=== PATIENT | female | born 2000 | race African-American/Black ===

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

== ENCOUNTER 2023-03-08 14:43 | Emergency (ER) | payer OTHER, SELFPAY ==
--- OUTSIDE RECORDS SUMMARY | 2023-03-08 14:50 | XMS REPORT | Continuity of Care Document ---
:2000 Author Organization [facility] t Address [address] [place] [address] Care Team Providers Name Role Phone PCP, PATIENT DOES NOT HAVE A Primary Care Physician Unavaila DANNY Grace Attending Clinician Unavailable DANNY MURRAY Attending Clinician Unavailable JAGUAR CASTILLO Attending Clinician Unavailable JAGUAR CASTILLO Attending Clinician Unavailable Doctor Unassigned, [place] Attending Clinician Unavailable Windy MCLEAN Attending Clinician Unavailable Windy Ahmadi Attending Clinician PERRY REGAN Attending Clinician Unavailable PERRY REGAN Attending Clinician Unavailable JUANA VARELA Attending Clinician Unavailable Juana Varela PA-C Attending Clinician Po, [facility] Lab Main Attending Clinician Unavailable Jane Motley MD Attending Clinician Cait Hodgson Attending Clinician Shawn Aguilera DO Attending Clinician JANE MOTLEY Attending Clinician Unavailable Merary Carrillo Attending Clinician MERARY ANDRES Attending Clinician Unavailable Lamont Erazo MD Attending Clinician Nurse, [facility] Attending Clinician Unavailable Only, Adc Test Attending Clinician Unavailable LAMONT ERAZO Attending Clinician Unavailable Pcp, Patient Does Not Have A Attending Clinician [phone], [facility] Attending Clinician Unavailable Ultrasound, [facility] Attending Clinician Unavailable Rupert Tovar MD Attending Clinician LAMONT ERAZO Admitting Clinician Unavailable Lamont Erazo MD Admitting Clinician Payers Payer Name Policy Type Policy Number Effective Date Expiration Date Kenneth soriano [facility] [id number] 2016 CHOICE MEDICAID 00:00:00 CIGNA II [id number] 2021 00:00:00 Problems Condition Condition Condition Status Onset Resolution Last Treating Co mments Source Name Details Category Date Date Treatment Clinician Date Pain of Pain of Disease Active Univers right right 4 ity of breast breast 00:00: [place] [address] Medical Branch Acute Acute Disease Active Univers vaginitis vaginitis - ity of 00:00: [place] [address] Medical Branch Nexplanon Nexplanon Disease Active Uni vers in place in place 11-27 ity of 00:00: [place] [address] Medical [place] Screening Screening Disease Active Uni vers examinatio examinatio 10-26 it y of n for n for 00:00: [place] venereal venereal 00 Medica l disease disease Branch Allergies, Adverse Reactions, Alerts Allergy Allergy Status Severity Reaction(s) Onset Inactive Treating Comm ents Source Name Type Date Date Clinician NO KNOWN Drug Active Univers ALLERGIE Class ity of [facility] Social History Social Habit Start Date Stop Date Quantity Comments Source History SDND University o f Alcohol Comment [place] [facility] Gender identity Universit y of [facility] Sexual orientation Univer sity of [place] [facility] History SDOH University o f Alcohol Std Drinks [place] [facility] History [facility] University o f Alcohol Binge [place] [facility] Alcohol intake 2023-01-08 2023-01-08 Lifetime University of 00:00:00 00:00:00 non-drinker [facility] (finding) Branch Exposure to 2022-08-08 2022-08-18 Not sure University SARS-CoV-2 (event) 00:00:00 10:08:00 [facility] History of Social 2022-08-17 2022-08-17 Univers ity of function 00:00:00 00:00:00 [facility] Tobacco use and 2022-07-03 2022-07-03 Smokeless Universit y of exposure 00:00:00 00:00:00 tobacco non-user [facility] dical [place] History SDOH 2019-05-29 2019-05-29 1 University o f [facility]00[facility] [place] Sex Assigned At [birth year] Universit y of 00:00:00 00:00:00 [facility] Smoking Status Start Date Stop Date Source Never smoked tobacco [facility] Medications Ordered Filled Start Stop Current Ordering Indication Dosage Frequency Signature Comments Components Source Medication Medication Date Date Medication? Clinician (SIG) Name Name etonogestre 2022- No [id number] 68mg Univers L 01-08 ity of (NEXPLANON) 21:00: 20:14 [place] implant 68 00 :00 Medical mg Branch etonogestre 2022- No [id number] 68mg 68 mg, Univers L 01-08 Subdermal, ity of (NEXPLANON) 21:00[place] :[place] dose, On Medic al mg Mon [place] 01/08/23 at 1600, Routine
Use approved by: CHIEF WARDEN etonogestre 2022- No [id number] 68mg Univers L 01-08 ity of (NEXPLANON) 21:00: 20:14 [place] implant 68 00 :00 Medical mg Branch etonogestre 2022- No [id number] 68mg 68 mg, Univers L 01-08 Subdermal, ity of (NEXPLANON) 21:00: 20:14 [place] 00 :[place] dose, On Medic al mg Mon [place] 01/08/23 at 1600, Routine
Use approved by: [employer]IE[employer]EN estradioL 1 Yes [id number] 1mg Take 1 Univers mg tablet 9-11 tablet by ity o f 00:00: mouth in [place] the Medical morning. Branch estradioL 1 Yes [id number] 1mg Take 1 Univers mg tablet 9-11 tablet by ity o f 00:00: mouth in [place] the Medical morning. Branch estradioL 1 Yes [id number] 1mg Take 1 Univers mg tablet 9-11 tablet by ity o f 00:00: mouth in [place] the Medical morning. Branch estradioL 1 2022-0 Yes [id number] 1mg Take 1 Univers mg tablet 9-11 tablet by ity o f 00:00: mouth in [place] the Medical morning. Branch erythromyci 2022-0 Yes [id number] .5[in_u Place 0.5 Univers n 5 mg/gram 7-30 9104 s] Inches in ity of (0.5 %) 00:00: both eyes [place] ophthalmic 00 4 (four) Medic al ointment times Branch daily. Continue until you follow up with eye doctor. erythromyci 2022-0 Yes [id number] .5[in_u Place 0.5 Univers n 5 mg/gram 7-30 9104 s] Inches in ity of (0.5 %) 00:00: both eyes [place] ophthalmic 00 4 (four) Medic al ointment times Branch daily. Continue until you follow up with eye doctor. erythromyci 2022-0 Yes [id number] .5[in_u Place 0.5 Univers n 5 mg/gram 7-30 9104 s] Inches in ity of (0.5 %) 00:00: both eyes [place] ophthalmic 00 4 (four) Medic al ointment times Branch daily. Continue until you follow up with eye doctor. erythromyci 2022-0 Yes [id number] .5[in_u Place 0.5 Univers n 5 mg/gram 7-30 9104 s] Inches in ity of (0.5 %) 00:00: both eyes [place] ophthalmic 00 4 (four) Medic al ointment times Branch daily. Continue until you follow up with eye doctor. erythromyci 2022-0 Yes [id number] .5[in_u Place 0.5 Univers n 5 mg/gram 7-30 9104 s] Inches in ity of (0.5 %) 00:00: both eyes [place] ophthalmic 00 4 (four) Medic al ointment times Branch daily. Continue until you follow up with eye doctor. erythromyci 2022-0 Yes [id number] .5[in_u Place 0.5 Univers n 5 mg/gram 7-30 9104 s] Inches in ity of (0.5 %) 00:00: both eyes [place] ophthalmic 00 4 (four) Medic al ointment times Branch daily. Continue until you follow up with eye doctor. metroNIDAZO 3-0 Yes [id number] 500mg Take 1 Univers LE 500 mg 4-24 tablet by ity o f tablet 00:00: mouth [place] 00 every 12 Medical (twelve) Branch hours. terconazole 2022-0 Yes [id number] 80mg Insert 1 Univers 80 mg 4-24 Suppositor ity of vaginal 00:00: y into [place] suppository 00 vagina at [facility] bedtime. Branch metroNIDAZO 2022-0 Yes [id number] 500mg Take 1 Univers LE 500 mg 4-24 tablet by ity o f tablet 00:00: mouth [place] 00 every 12 Medical (twelve) Branch hours. terconazole 2022-0 Yes [id number] 80mg Insert 1 Univers 80 mg 4-24 Suppositor ity of vaginal 00:00: y into [place] suppository 00 vagina at [facility] bedtime. Branch metroNIDAZO 2022-0 Yes [id number] 500mg Take 1 Univers LE 500 mg 4-24 tablet by ity o f tablet 00:00: mouth [place] 00 every 12 Medical (twelve) Branch hours. terconazole 2022-0 Yes [id number] 80mg Insert 1 Univers 80 mg 4-24 Suppositor ity of vaginal 00:00: y into [place] suppository 00 vagina at [facility] bedtime. Branch metroNIDAZO 3-0 Yes [id number] 500mg Take 1 Univers LE 500 mg 4-24 tablet by ity o f tablet 00:00: mouth [place] 00 every 12 Medical (twelve) Branch hours. terconazole 2022-0 Yes [id number] 80mg Insert 1 Univers 80 mg 4-24 Suppositor ity of vaginal 00:00: y into [place] suppository 00 vagina at [facility] bedtime. Branch metroNIDAZO 2022-0 Yes [id number] 500mg Take 1 Univers LE 500 mg 4-24 tablet by ity o f tablet 00:00: mouth [place] 00 every 12 Medical (twelve) Branch hours. terconazole 3-0 Yes [id number] 80mg Insert 1 Univers 80 mg 4-24 Suppositor ity of vaginal 00:00: y into [place] suppository 00 vagina at [facility] bedtime. Branch metroNIDAZO 3-0 Yes [id number] 500mg Take 1 Univers LE 500 mg 4-24 tablet by ity o f tablet 00:00: mouth [place] 00 every 12 Medical (twelve) Branch hours. terconazole 3-0 Yes [id number] 80mg Insert 1 Univers 80 mg 4-24 Suppositor ity of vaginal 00:00: y into [place] suppository 00 vagina at [facility] bedtime. Branch metroNIDAZO 3-0 Yes [id number] 500mg Take 1 Univers LE 500 mg 4-24 tablet by ity o f tablet 00:00: mouth [place] 00 every 12 Medical (twelve) Branch hours. terconazole 3-0 Yes [id number] 80mg Insert 1 Univers 80 mg 4-24 Suppositor ity of vaginal 00:00: y into [place] suppository 00 vagina at [facility] bedtime. Branch metroNIDAZO 3-0 Yes [id number] 500mg Take 1 Univers LE 500 mg 3-07 tablet by ity o f tablet 00:00: mouth [place] 00 every 12 Medical (twelve) Branch hours. metroNIDAZO 3-0 Yes [id number] 500mg Take 1 Univers LE 500 mg 3-07 tablet by ity o f tablet 00:00: mouth [place] 00 every 12 Medical (twelve) Branch hours. metroNIDAZO 3-0 Yes [id number] 500mg Take 1 Univers LE 500 mg 3-07 tablet by ity o f tablet 00:00: mouth [place] 00 every 12 Medical (twelve) Branch hours. metroNIDAZO 2023-0 Yes [id number] 500mg Take 1 Univers LE 500 mg 3-07 tablet by ity o f tablet 00:00: mouth [place] 00 every 12 Medical (twelve) Branch hours. metroNIDAZO 2023-0 Yes [id number] 500mg Take 1 Univers LE 500 mg 3-07 tablet by ity o f tablet 00:00: mouth [place] 00 every 12 Medical (twelve) Branch hours. metroNIDAZO 2023-0 Yes [id number] 500mg Take 1 Univers LE 500 mg 3-07 tablet by ity o f tablet 00:00: mouth [place] 00 every 12 Medical (twelve) Branch hours. metroNIDAZO 2023-0 Yes [id number] 500mg Take 1 Univers LE 500 mg 3-07 tablet by ity o f tablet 00:00: mouth [place] 00 every 12 Medical (twelve) Branch hours. metroNIDAZO 2022-0 Yes [id number] 500mg Take 1 Univers LE 500 mg 3-07 tablet by ity o f tablet 00:00: mouth [place] 00 every 12 Medical (twelve) Branch hours. metroNIDAZO 2022-0 Yes [id number] 500mg Take 1 Univers LE 500 mg 3-07 tablet by ity o f tablet 00:00: mouth [place] 00 every 12 Medical (twelve) Branch hours. metroNIDAZO 2022-0 Yes [id number] 500mg Take 1 Univers LE 500 mg 3-07 tablet by ity o f tablet 00:00: mouth [place] 00 every 12 Medical (twelve) Branch hours. metroNIDAZO 2022-0 Yes [id number] 500mg Take 1 Univers LE 500 mg 3-07 tablet by ity o f tablet 00:00: mouth [place] 00 every 12 Medical (twelve) Branch hours. metroNIDAZO 2021-0 Yes [id number] 500mg Take 1 Univers LE 500 mg 4-07 tablet by ity o f tablet 00:00: mouth [place] 00 every 12 Medical (twelve) Branch hours. metroNIDAZO 2021-0 Yes [id number] 500mg Take 1 Univers LE 500 mg 4-07 tablet by ity o f tablet 00:00: mouth [place] 00 every 12 Medical (twelve) Branch hours. metroNIDAZO 2021-0 Yes [id number] 500mg Take 1 Univers LE 500 mg 4-07 tablet by ity o f tablet 00:00: mouth [place] 00 every 12 Medical (twelve) Branch hours. metroNIDAZO 2021-0 2022- No [id number] 500mg Take 1 Univers LE 500 mg 4-07 03-07 tablet by ity of tablet 00:00: 00:00 mouth [place] 00 :00 every 12 Medical (twelve) Branch hours. fluconazole 2021-0 2021- No [id number] 150mg Take 1 Univers 150 mg 4-07 04-08 tablet by ity of tablet 00:00: 04:59 [place] :[place] for 1 Medical dose. Branch chlorphenir 2020-0 Yes [id number] 4mg Take 1 Univers amine 4 mg 8-19 tablet by ity of tablet 00:00: mouth [place] 00 every 6 Medical (six) Branch hours as needed for Allergies or Runny nose. calcium/mag 2021-0 Yes [id number] 1{each} Take 1 Univers nesium/zinc 8-19 Each by ity o f (CALCIUM-MA 00:00: mouth [place] GNESUIUM-ZI 00 daily. Medica l NM) Branch 333-133-5 mg Tab benzonatate 2021-0 Yes [id number] 100mg Take 1 Univers 100 mg 8-19 capsule by ity of capsule 00:00: mouth 3 [place] 00 (three) Medical times Branch daily as needed for Cough. chlorphenir 2021-0 Yes [id number] 4mg Take 1 Univers amine 4 mg 8-19 tablet by ity of tablet 00:00: mouth [place] 00 every 6 Medical (six) Branch hours as needed for Allergies or Runny nose. calcium/mag 1-0 Yes [id number] 1{each} Take 1 Univers nesium/zinc 8-19 Each by ity o f (CALCIUM-MA 00:00: mouth [place] GNESUIUM-ZI 00 daily. Medica l NM) Branch 333-133-5 mg Tab benzonatate 1-0 Yes [id number] 100mg Take 1 Univers 100 mg 8-19 capsule by ity of capsule 00:00: mouth 3 [place] 00 (three) Medical times Branch daily as needed for Cough. chlorphenir 2021-0 Yes [id number] 4mg Take 1 Univers amine 4 mg 8-19 tablet by ity of tablet 00:00: mouth [place] 00 every 6 Medical (six) Branch hours as needed for Allergies or Runny nose. calcium/mag 1-0 Yes [id number] 1{each} Take 1 Univers nesium/zinc 8-19 Each by ity o f (CALCIUM-MA 00:00: mouth [place] GNESUIUM-ZI 00 daily. Medica l NM) Branch 333-133-5 mg Tab benzonatate 2021-0 Yes [id number] 100mg Take 1 Univers 100 mg 8-19 capsule by ity of capsule 00:00: mouth 3 [place] 00 (three) Medical times Branch daily as needed for Cough. chlorphenir 2021-0 Yes [id number] 4mg Take 1 Univers amine 4 mg 8-19 tablet by ity of tablet 00:00: mouth [place] 00 every 6 Medical (six) Branch hours as needed for Allergies or Runny nose. calcium/mag 2021-0 Yes [id number] 1{each} Take 1 Univers nesium/zinc 8-19 Each by ity o f (CALCIUM-MA 00:00: mouth [place] GNESUIUM-ZI 00 daily. Medica l NM) Branch 333-133-5 mg Tab benzonatate 2021-0 Yes [id number] 100mg Take 1 Univers 100 mg 8-19 capsule by ity of capsule 00:00: mouth 3 [place] 00 (three) Medical times Branch daily as needed for Cough. chlorphenir 2021-0 Yes [id number] 4mg Take 1 Univers amine 4 mg 8-19 tablet by ity of tablet 00:00: mouth [place] 00 every 6 Medical (six) Branch hours as needed for Allergies or Runny nose. calcium/mag 1-0 Yes [id number] 1{each} Take 1 Univers nesium/zinc 8-19 Each by ity o f (CALCIUM-MA 00:00: mouth [place] GNESUIUM-ZI 00 daily. [facility]) Branch 333-133-5 mg Tab benzonatate 2020-0 Yes [id number] 100mg Take 1 Univers 100 mg 8-19 capsule by ity of capsule 00:00: mouth 3 [place] 00 (three) Medical times Branch daily as needed for Cough. chlorphenir 2021-0 Yes [id number] 4mg Take 1 Univers amine 4 mg 8-19 tablet by ity of tablet 00:00: mouth [place] 00 every 6 Medical (six) Branch hours as needed for Allergies or Runny nose. calcium/mag 1-0 Yes [id number] 1{each} Take 1 Univers nesium/zinc 8-19 Each by ity o f (CALCIUM-MA 00:00: mouth [place] GNESUIUM-ZI 00 daily. Medica l NM) Branch 333-133-5 mg Tab benzonatate 2021-0 Yes [id number] 100mg Take 1 Univers 100 mg 8-19 capsule by ity of capsule 00:00: mouth 3 [place] 00 (three) Medical times Branch daily as needed for Cough. chlorphenir 2021-0 Yes [id number] 4mg Take 1 Univers amine 4 mg 8-19 tablet by ity of tablet 00:00: mouth [place] 00 every 6 Medical (six) Branch hours as needed for Allergies or Runny nose. calcium/mag 2021-0 Yes [id number] 1{each} Take 1 Univers nesium/zinc 8-19 Each by ity o f (CALCIUM-MA 00:00: mouth [place] GNESUIUM-ZI 00 daily. Medica l NM) Branch 333-133-5 mg Tab benzonatate 2021-0 Yes [id number] 100mg Take 1 Univers 100 mg 8-19 capsule by ity of capsule 00:00: mouth 3 [place] 00 (three) Medical times Branch daily as needed for Cough. chlorphenir 2021-0 Yes [id number] 4mg Take 1 Univers amine 4 mg 8-19 tablet by ity of tablet 00:00: mouth [place] 00 every 6 Medical (six) Branch hours as needed for Allergies or Runny nose. calcium/mag 2021-0 Yes [id number] 1{each} Take 1 Univers nesium/zinc 8-19 Each by ity o f (CALCIUM-MA 00:00: mouth [place] GNESUIUM-ZI 00 daily. Medica l NM) Branch 333-133-5 mg Tab benzonatate 1-0 Yes [id number] 100mg Take 1 Univers 100 mg 8-19 capsule by ity of capsule 00:00: mouth 3 [place] 00 (three) Medical times Branch daily as needed for Cough. chlorphenir 1-0 Yes [id number] 4mg Take 1 Univers amine 4 mg 8-19 tablet by ity of tablet 00:00: mouth [place] 00 every 6 Medical (six) Branch hours as needed for Allergies or Runny nose. calcium/mag 1-0 Yes [id number] 1{each} Take 1 Univers nesium/zinc 8-19 Each by ity o f (CALCIUM-MA 00:00: mouth [place] GNESUIUM-ZI 00 daily. Medica l NM) Branch 333-133-5 mg Tab benzonatate 1-0 Yes [id number] 100mg Take 1 Univers 100 mg 8-19 capsule by ity of capsule 00:00: mouth 3 [place] 00 (three) Medical times Branch daily as needed for Cough. chlorphenir 2021-0 Yes [id number] 4mg Take 1 Univers amine 4 mg 8-19 tablet by ity of tablet 00:00: mouth [place] 00 every 6 Medical (six) Branch hours as needed for Allergies or Runny nose. calcium/mag 2021-0 Yes [id number] 1{each} Take 1 Univers nesium/zinc 8-19 Each by ity o f (CALCIUM-MA 00:00: mouth [place] GNESUIUM-ZI 00 daily. Medica l NM) Branch 333-133-5 mg Tab benzonatate 2020-0 Yes [id number] 100mg Take 1 Univers 100 mg 8-19 capsule by ity of capsule 00:00: mouth 3 [place] 00 (three) Medical times Branch daily as needed for Cough. chlorphenir 2020-0 Yes [id number] 4mg Take 1 Univers amine 4 mg 8-19 tablet by ity of tablet 00:00: mouth [place] 00 every 6 Medical (six) Branch hours as needed for Allergies or Runny nose. calcium/mag 2020-0 Yes [id number] 1{each} Take 1 Univers nesium/zinc 8-19 Each by ity o f (CALCIUM-MA 00:00: mouth [place] GNESUIUM-ZI 00 daily. Medica l NM) Branch 333-133-5 mg Tab benzonatate 2020-0 Yes [id number] 100mg Take 1 Univers 100 mg 8-19 capsule by ity of capsule 00:00: mouth 3 [place] 00 (three) Medical times Branch daily as needed for Cough. chlorphenir 2020-0 Yes [id number] 4mg Take 1 Univers amine 4 mg 8-19 tablet by ity of tablet 00:00: mouth [place] 00 every 6 Medical (six) Branch hours as needed for Allergies or Runny nose. calcium/mag 2020-0 Yes [id number] 1{each} Take 1 Univers nesium/zinc 8-19 Each by ity o f (CALCIUM-MA 00:00: mouth [place] GNESUIUM-ZI 00 daily. Medica l NM) Branch 333-133-5 mg Tab benzonatate 2020-0 Yes [id number] 100mg Take 1 Univers 100 mg 8-19 capsule by ity of capsule 00:00: mouth 3 [place] 00 (three) Medical times Branch daily as needed for Cough. chlorphenir 1-0 3- No [id number] 4mg Take 1 Univers amine 4 mg 8-19 09-11 tablet by ity of tablet 00:00: 00:00 mouth [place] 00 :00 every 6 Medical (six) Branch hours as needed for Allergies or Runny nose. calcium/mag 2020-0 3- No [id number] 1{each} Take 1 Univers nesium/zinc 8-19 09-11 Each by ity of (CALCIUM-MA 00:00: 00:00 [place] GNESUIUM-ZI 00 :00 daily. Medica l [place]) Branch 333-133-5 mg Tab benzonatate 2022- No [id number] 100mg Take 1 Univers 100 mg 12-16 capsule by ity of capsule 00:00: 00:00 mouth 3 [place] 00 :00 (three) Medical times Branch daily as needed for Cough. chlorphenir 2022- No [id number] 4mg Take 1 Univers amine 4 mg 12-16 tablet by ity of tablet 00:00: 00:00 mouth [place] 00 :00 every 6 Medical (six) Branch hours as needed for Allergies or Runny nose. calcium/mag 2022- No [id number] 1{each} Take 1 Univers nesium/zinc 12-16 Each by ity of (CALCIUM-MA 00:00: 00:00 [place] GNESUIUM-ZI 00 :00 daily. Medica l [place]) Branch 333-133-5 mg Tab benzonatate 2022- No [id number] 100mg Take 1 Univers 100 mg 12-16 capsule by ity of capsule 00:00: 00:00 mouth 3 [place] 00 :00 (three) Medical times Branch daily as needed for Cough. ferrous Yes [id number] 325mg Take 1 Uni vers sulfate 6-01 tablet by ity of (IRON, 00:00: mouth 2 [place] FERROUS 00 (two) Medical SULFATE,) times Branch 325 mg (65 daily. mg iron) tablet ferrous Yes [id number] 325mg Take 1 Uni vers sulfate 6-01 tablet by ity of (IRON, 00:00: mouth 2 [place] FERROUS 00 (two) Medical SULFATE,) times Branch 325 mg (65 daily. mg iron) tablet ferrous Yes [id number] 325mg Take 1 Uni vers sulfate 6-01 tablet by ity of (IRON, 00:00: mouth 2 [place] FERROUS 00 (two) Medical SULFATE,) times Branch 325 mg (65 daily. mg iron) tablet ferrous Yes [id number] 325mg Take 1 Uni vers sulfate 6-01 tablet by ity of (IRON, 00:00: mouth 2 [place] FERROUS 00 (two) Medical SULFATE,) times Branch 325 mg (65 daily. mg iron) tablet ferrous Yes [id number] 325mg Take 1 Uni vers sulfate 6-01 tablet by ity of (IRON, 00:00: mouth 2 [place] FERROUS 00 (two) Medical SULFATE,) times Branch 325 mg (65 daily. mg iron) tablet ferrous Yes [id number] 325mg Take 1 Uni vers sulfate 6-01 tablet by ity of (IRON, 00:00: mouth 2 [place] FERROUS 00 (two) Medical SULFATE,) times Branch 325 mg (65 daily. mg iron) tablet ferrous Yes [id number] 325mg Take 1 Uni vers sulfate 6-01 tablet by ity of (IRON, 00:00: mouth 2 [place] FERROUS 00 (two) Medical SULFATE,) times Branch 325 mg (65 daily. mg iron) tablet ferrous Yes [id number] 325mg Take 1 Uni vers sulfate 6-01 tablet by ity of (IRON, 00:00: mouth 2 [place] FERROUS 00 (two) Medical SULFATE,) times Branch 325 mg (65 daily. mg iron) tablet ferrous Yes [id number] 325mg Take 1 Uni vers sulfate 6-01 tablet by ity of (IRON, 00:00: mouth 2 [place] FERROUS 00 (two) Medical SULFATE,) times Branch 325 mg (65 daily. mg iron) tablet ferrous Yes [id number] 325mg Take 1 Uni vers sulfate 6-01 tablet by ity of (IRON, 00:00: mouth 2 [place] FERROUS 00 (two) Medical SULFATE,) times Branch 325 mg (65 daily. mg iron) tablet ferrous Yes [id number] 325mg Take 1 Uni vers sulfate 6-01 tablet by ity of (IRON, 00:00: mouth 2 [place] FERROUS 00 (two) Medical SULFATE,) times Branch 325 mg (65 daily. mg iron) tablet ferrous Yes [id number] 325mg Take 1 Uni vers sulfate 6-01 tablet by ity of (IRON, 00:00: mouth 2 [place] FERROUS 00 (two) Medical SULFATE,) times Branch 325 mg (65 daily. mg iron) tablet ferrous 2023- No [id number] 325mg Take 1 Un [place] sulfate 6-01 01-08 tablet by ity of (IRON, 00:00: 00:00 mouth 2 [place] FERROUS 00 :00 (two) Medical SULFATE,) times Branch 325 mg (65 daily. mg iron) tablet ferrous 2022- No [id number] 325mg Take 1 Un [place] sulfate 09-28 tablet by du of (IRON, 00:00: 00:00 mouth 2 [place] FERROUS 00 :00 (two) Medical SULFATE,) times Branch 325 mg (65 daily. mg iron) tablet Immunizations Ordered Immunization Filled Date Status Comments Sour ce Name Immunization Name TDAP (ADACEL) 2019-08-21 Completed University of VACCINE 00:00:00 [place] [facility] TDAP (ADACEL) 2019-08-21 Completed University of VACCINE 00:00:00 [place] [facility] TDAP (ADACEL) 2019-08-21 Completed University of VACCINE 00:00:00 [place] [facility] TDAP (ADACEL) 2019-08-21 Completed University of VACCINE 00:00:00 [facility] Branch TDAP (ADACEL) 2019-08-21 Completed University of VACCINE 00:00:00 [facility] Branch TDAP (ADACEL) 2019-08-21 Completed University of VACCINE 00:00:00 [place] [facility] TDAP (ADACEL) 2019-08-21 Completed University of VACCINE 00:00:00 [facility] Branch TDAP (ADACEL) 2019-08-21 Completed University of VACCINE 00:00:00 [place] [facility] TDAP (ADACEL) 2019-08-21 Completed University of VACCINE 00:00:00 [place] [facility] TDAP (ADACEL) 2019-08-21 Completed University of VACCINE 00:00:00 [place] [facility] TDAP (ADACEL) 2019-08-21 Completed University of VACCINE 00:00:00 [place] [facility] TDAP (ADACEL) 2019-08-21 Completed University of VACCINE 00:00:00 [facility] Branch TDAP (ADACEL) 2019-08-21 Completed University of VACCINE 00:00:00 [facility] Branch TDAP (ADACEL) 2019-08-21 Completed University of VACCINE 00:00:00 [facility] Branch TDAP (ADACEL) 2019-08-21 Completed University of VACCINE 00:00:00 [facility] Influenza Virus 2019-05-29 Completed Universit y of Vaccine Quad .5 mL 00:00:00 [facility] IM 6+ MO Branch Influenza Virus 2019-05-29 Completed Universit y of Vaccine [place] .5 mL 00:00:00 [facility] IM 6+ MO Branch Influenza Virus 2019-05-29 Completed Universit y of Vaccine [place] .5 mL 00:00:00 [facility] 6+ MO Branch Influenza Virus 2019-05-29 Completed Universit y of Vaccine [place] .5 mL 00:00:00 [facility] IM 6+ MO Branch Influenza Virus 2019-05-29 Completed Universit y of Vaccine Quad .5 mL 00:00:00 [facility] 6+ MO Branch Influenza Virus 2019-05-29 Completed [facility]it [facility] of Vaccine Quad .5 mL 00:00:00 [facility] 6+ MO Branch Influenza Virus 2019-05-29 Completed [facility]it [facility] of Vaccine Quad .5 mL 00:00:00 [facility] 6+ MO Branch Influenza Virus 2019-05-29 Completed [facility]it y of Vaccine Quad .5 mL 00:00:00 [facility] 6+ MO Branch Influenza Virus 2019-05-29 Completed [facility]it y of Vaccine Quad .5 mL 00:00:00 [facility] 6+ MO Branch Influenza Virus 2019-05-29 Completed [facility]it y of Vaccine Quad .5 mL 00:00:00 [facility] 6+ MO Branch Influenza Virus 2019-05-29 Completed [facility]it y of Vaccine Quad .5 mL 00:00:00 [facility] 6+ MO Branch Influenza Virus 2019-05-29 Completed [facility]it y of Vaccine Quad .5 mL 00:00:00 [facility] 6+ MO Branch (FLUZONE/FLULAVAL/FL UARIX) Influenza Virus 2019-05-29 Completed [facility]it y of Vaccine Quad .5 mL 00:00:00 [facility] 6+ MO Branch (FLUZONE/FLULAVAL/FL UARIX) Influenza Virus 2019-05-29 Completed [facility]it y of Vaccine Quad .5 mL 00:00:00 [facility] 6+ MO Branch (FLUZONE/FLULAVAL/FL UARIX) Influenza Virus 2019-05-29 Completed [facility]it y of Vaccine Quad .5 mL 00:00:00 [facility] 6+ MO Branch (FLUZONE/FLULAVAL/FL UARIX) Meningococcal 2017-11-12 Completed University of Vaccine 00:00:00 [facility] Varicella 2017-11-12 Completed University of (varivax)(chicken 00:00:00 [place] [facility] pox) [place] Meningococcal 2017-11-12 Completed [facility] of Vaccine 00:00:00 [facility] Varicella 2017-11-12 Completed [facility] of (varivax)(chicken 00:00:00 [place] [facility] pox) [facility] Meningococcal 2017-11-12 Completed [facility] of Vaccine 00:00:00 [facility] Varicella 2017-11-12 Completed [facility] of (varivax)(chicken 00:00:00 [place] [facility] pox[facility] Meningococcal 2017-11-12 Completed [facility] of Vaccine 00:00:00 [facility] Varicella 2017-11-12 Completed [facility] of (varivax)(chicken 00:00:00 [place] [facility] pox) [facility] Meningococcal 2017-11-12 Completed [facility] of Vaccine 00:00:00 [facility] Varicella 2017-11-12 Completed [facility] of (varivax)(chicken 00:00:00 [place] [facility] pox) [facility] Meningococcal 2017-11-12 Completed [facility] of Vaccine 00:00:00 [facility] Varicella 2017-11-12 Completed [facility] of (varivax)(chicken 00:00:00 [place] [facility] pox) [facility] Meningococcal 2017-11-12 Completed [facility] of Vaccine 00:00:00 [facility] Varicella 2017-11-12 Completed [facility] of (varivax)(chicken 00:00:00 [place] [facility] pox) [facility] Meningococcal 2017-11-12 Completed [facility] of Polysaccharide 00:00:00 [place] [facility] (groups A, C, Y and Branc h W-135) conjugate vaccine (MCV4P) Meningococcal 2017-11-12 Completed [facility] of Vaccine 00:00:00 [facility] Varicella 2017-11-12 Completed [facility] of (varivax)(chicken 00:00:00 [place] [facility] pox) [facility] Meningococcal 2017-11-12 Completed [facility] of Polysaccharide 00:00:00 [place] [facility] (groups A, C, Y and Branc h W-135) conjugate vaccine (MCV4P) Meningococcal 2017-11-12 Completed [facility] of Vaccine 00:00:00 [facility] Varicella 2017-11-12 Completed [facility] of (varivax)(chicken 00:00:00 [place] [facility] pox) [facility] Meningococcal 2017-11-12 Completed [facility] of Polysaccharide 00:00:00 [place] [facility] (groups A, C, Y and Branc h W-135) conjugate vaccine (MCV4P) Meningococcal 2017-11-12 Completed [facility] of Vaccine 00:00:00 [facility] Varicella 2017-11-12 Completed [facility] of (varivax)(chicken 00:00:00 [place] [facility] pox) [facility] Meningococcal 2017-11-12 Completed [facility] Polysaccharide 00:00:00 [place] [facility] (groups A, C, Y and Branc h W-135) conjugate vaccine (MCV4P) Meningococcal 2017-11-12 Completed [facility] of Vaccine 00:00:00 [facility] Varicella 2017-11-12 Completed [facility] of (varivax)(chicken 00:00:00 [place] [facility] pox) [facility] Meningococcal 2017-11-12 Completed [facility] of Polysaccharide 00:00:00 [place] [facility] (groups A, C, Y and Branc h W-135) conjugate vaccine (MCV4P) Meningococcal 2017-11-12 Completed [facility] of Vaccine 00:00:00 [facility] Varicella 2017-11-12 Completed [facility] of (varivax)(chicken 00:00:00 [place] [facility] pox) [facility] Meningococcal 2017-11-12 Completed [facility] of Polysaccharide 00:00:00 [place] [facility] (groups A, C, Y and Branc h W-135) conjugate vaccine (MCV4P) Meningococcal 2017-11-12 Completed [facility] of Vaccine 00:00:00 [facility] Varicella 2017-11-12 Completed [facility] of (varivax)(chicken 00:00:00 [place] [facility] pox) [facility] Meningococcal 2017-11-12 Completed [facility] of Polysaccharide 00:00:00 [place] [facility] (groups A, C, Y and Branc h W-135) conjugate vaccine (MCV4P) Meningococcal 2017-11-12 Completed [facility] of Vaccine 00:00:00 [facility] Varicella 2017-11-12 Completed [facility] of (varivax)(chicken 00:00:00 [place] [facility] pox) [facility] Meningococcal 2017-11-12 Completed [facility] of Polysaccharide 00:00:00 [place] [facility] (groups A, C, Y and Branc h W-135) conjugate vaccine (MCV4P) Meningococcal 2017-11-12 Completed [facility] of Vaccine 00:00:00 [facility] Varicella 2017-11-12 Completed [facility] of (varivax)(chicken 00:00:00 [place] [facility] pox) [facility] Meningococcal 2017-11-12 Completed [facility] Polysaccharide 00:00:00 [place] [facility] (groups A, C, Y and Branc h W-135) conjugate vaccine (MCV4P) HPV Unspecified 2016-06-14 Completed [facility] 00:00:00 [facility] HPV Unspecified 2016-06-14 Completed [facility] of 00:00:00 [facility] HPV Unspecified 2016-06-14 Completed [facility] of 00:00:00 [facility] HPV Unspecified 2016-06-14 Completed [facility] y of 00:00:00 [facility] HPV Unspecified 2016-06-14 Completed [facility] y of 00:00:00 [facility] HPV Unspecified 2016-06-14 Completed [facility] of 00:00:00 [facility] HPV Unspecified 2016-06-14 Completed [facility] y of 00:00:00 [facility] HPV 2016-06-14 Completed [facility] of 00:00:00 [facility] HPV Unspecified 2016-06-14 Completed [facility] y of 00:00:00 [facility] HPV 2016-06-14 Completed [facility] 00:00:00 [facility] HPV Unspecified 2016-06-14 Completed [facility] y of 00:00:00 [facility] HPV 2016-06-14 Completed [facility] 00:00:00 [facility] HPV Unspecified 2016-06-14 Completed [facility] y of 00:00:00 [facility] HPV 2016-06-14 Completed [facility] 00:00:00 [facility] HPV Unspecified 2016-06-14 Completed [facility] y of 00:00:00 [facility] HPV 2016-06-14 Completed [facility] of 00:00:00 [facility] HPV Unspecified 2016-06-14 Completed [facility] y of 00:00:00 [facility] HPV 2016-06-14 Completed [facility] of 00:00:00 [facility] HPV Unspecified 2016-06-14 Completed [facility] y of 00:00:00 [facility] HPV 2016-06-14 Completed [facility] 00:00:00 [facility] HPV Unspecified 2016-06-14 Completed [facility] y of 00:00:00 [facility] HPV 2016-06-14 Completed [facility] of 00:00:00 [facility] HPV Unspecified 2016-06-14 Completed [facility]it y of 00:00:00 [facility] HPV 2016-06-14 Completed [facility] of 00:00:00 [facility] Meningococcal 2012-05-15 Completed [facility] of Vaccine 00:00:00 [facility] HPV Unspecified 2012-05-15 Completed Universit y of 00:00:00 [facility] TDAP 2012-05-15 Completed University of 00:00:00 [facility] Meningococcal 2012-05-15 Completed [facility] of Vaccine 00:00:00 [facility] HPV Unspecified 2012-05-15 Completed Universit y of 00:00:00 [facility] TDAP 2012-05-15 Completed [facility] of 00:00:00 [facility] Meningococcal 2012-05-15 Completed [facility] of Vaccine 00:00:00 [facility] HPV Unspecified 2012-05-15 Completed Universit y of 00:00:00 [facility] TDAP 2012-05-15 Completed University of 00:00:00 [facility] Meningococcal 2012-05-15 Completed [facility] of Vaccine 00:00:00 [facility] HPV Unspecified 2012-05-15 Completed [facility]it y of 00:00:00 [facility] TDAP 2012-05-15 Completed University of 00:00:00 [facility] Meningococcal 2012-05-15 Completed [facility] of Vaccine 00:00:00 [facility] HPV Unspecified 2012-05-15 Completed Universit y of 00:00:00 [facility] TDAP 2012-05-15 Completed [facility] of 00:00:00 [facility] Meningococcal 2012-05-15 Completed [facility] of Vaccine 00:00:00 [facility] HPV Unspecified 2012-05-15 Completed Universit y of 00:00:00 [facility] TDAP 2012-05-15 Completed University of 00:00:00 [facility] Meningococcal 2012-05-15 Completed [facility] of Vaccine 00:00:00 [facility] HPV Unspecified 2012-05-15 Completed Universit y of 00:00:00 [facility] TDAP 2012-05-15 Completed University of 00:00:00 [facility] Flu Trivalent 2012-05-15 Completed University of 00:00:00 [facility] Influenza Virus 2012-05-15 Completed Universit y of Vaccine - Whole 00:00:00 [facility] HPV 2012-05-15 Completed University of 00:00:00 [facility] Meningococcal 2012-05-15 Completed University of Polysaccharide 00:00:00 [facility] alejandra (groups A, C, Y and Branc h W-135) conjugate vaccine (MCV4P) Meningococcal 2012-05-15 Completed University of Vaccine 00:00:00 [facility] HPV Unspecified 2012-05-15 Completed Universit y of 00:00:00 [facility] TDAP 2012-05-15 Completed University of 00:00:00 [facility] Flu Trivalent 2012-05-15 Completed University of 00:00:00 [facility] Influenza Virus 2012-05-15 Completed Universit y of Vaccine - Whole 00:00:00 [facility] HPV 2012-05-15 Completed University of 00:00:00 [facility] Meningococcal 2012-05-15 Completed [facility] Polysaccharide 00:00:00 [place] [facility] (groups A, C, Y and Branc h W-135) conjugate vaccine (MCV4P) Meningococcal 2012-05-15 Completed University of Vaccine 00:00:00 [facility] HPV Unspecified 2012-05-15 Completed Universit y of 00:00:00 [facility] TDAP 2012-05-15 Completed University of 00:00:00 [facility] Flu Trivalent 2012-05-15 Completed University of 00:00:00 [facility] Influenza Virus 2012-05-15 Completed [facility]it y of Vaccine - Whole 00:00:00 [facility] HPV 2012-05-15 Completed University of 00:00:00 [facility] Meningococcal 2012-05-15 Completed [facility] Polysaccharide 00:00:00 [place] [facility] (groups A, C, Y and Branc h W-135) conjugate vaccine (MCV4P) Meningococcal 2012-05-15 Completed University of Vaccine 00:00:00 [facility] HPV Unspecified 2012-05-15 Completed Universit y of 00:00:00 [facility] TDAP 2012-05-15 Completed University of 00:00:00 [facility] Flu Trivalent 2012-05-15 Completed University of 00:00:00 [facility] Influenza Virus 2012-05-15 Completed Universit y of Vaccine - Whole 00:00:00 [facility] HPV 2012-05-15 Completed University of 00:00:00 [facility] Meningococcal 2012-05-15 Completed [facility] of Polysaccharide 00:00:00 [place] [facility] (groups A, C, Y and Branc h W-135) conjugate vaccine (MCV4P) Meningococcal 2012-05-15 Completed University of Vaccine 00:00:00 [facility] HPV Unspecified 2012-05-15 Completed Universit y of 00:00:00 [facility] TDAP 2012-05-15 Completed University of 00:00:00 [facility] Flu Trivalent 2012-05-15 Completed University of 00:00:00 [facility] Influenza Virus 2012-05-15 Completed Universit y of Vaccine - Whole 00:00:00 [facility] HPV 2012-05-15 Completed University of 00:00:00 [facility] Meningococcal 2012-05-15 Completed [facility] of Polysaccharide 00:00:00 [place] [facility] (groups A, C, Y and Branc h W-135) conjugate vaccine (MCV4P) Meningococcal 2012-05-15 Completed University of Vaccine 00:00:00 [facility] HPV Unspecified 2012-05-15 Completed Universit y of 00:00:00 [facility] TDAP 2012-05-15 Completed University of 00:00:00 [facility] Flu Trivalent 2012-05-15 Completed University of 00:00:00 [facility] Influenza Virus 2012-05-15 Completed Universit y of Vaccine - Whole 00:00:00 [facility] HPV 2012-05-15 Completed University of 00:00:00 [facility] Meningococcal 2012-05-15 Completed [facility] of Polysaccharide 00:00:00 [place] [facility] (groups A, C, Y and Branc h W-135) conjugate vaccine (MCV4P) Meningococcal 2012-05-15 Completed University of Vaccine 00:00:00 [facility] HPV Unspecified 2012-05-15 Completed Universit y of 00:00:00 [facility] TDAP 2012-05-15 Completed [facility] of 00:00:00 [facility] Flu Trivalent 2012-05-15 Completed University of 00:00:00 [facility] Influenza Virus 2012-05-15 Completed Universit y of Vaccine - Whole 00:00:00 [facility] HPV 2012-05-15 Completed University of 00:00:00 [facility] Meningococcal 2012-05-15 Completed [facility] Polysaccharide 00:00:00 [place] [facility] (groups A, C, Y and Branc h W-135) conjugate vaccine (MCV4P) Meningococcal 2012-05-15 Completed University of Vaccine 00:00:00 [facility] HPV Unspecified 2012-05-15 Completed Universit y of 00:00:00 [facility] TDAP 2012-05-15 Completed University of 00:00:00 [facility] Flu Trivalent 2012-05-15 Completed University of 00:00:00 [facility] Influenza Virus 2012-05-15 Completed Universit y of Vaccine - Whole 00:00:00 [facility] HPV 2012-05-15 Completed University of 00:00:00 [facility] Meningococcal 2012-05-15 Completed [facility] of Polysaccharide 00:00:00 [place] [facility] (groups A, C, Y and Branc h W-135) conjugate vaccine (MCV4P) Meningococcal 2012-05-15 Completed University of Vaccine 00:00:00 [facility] HPV Unspecified 2012-05-15 Completed [facility]it y of 00:00:00 [facility] TDAP 2012-05-15 Completed University of 00:00:00 [facility] Flu Trivalent 2012-05-15 Completed University of 00:00:00 [facility] Influenza Virus 2012-05-15 Completed Universit y of Vaccine - Whole 00:00:00 [facility] HPV 2012-05-15 Completed University of 00:00:00 [facility] Meningococcal 2012-05-15 Completed [facility] of Polysaccharide 00:00:00 [place] [facility] (groups A, C, Y and Branc h W-135) conjugate vaccine (MCV4P) HEPATITIS A 2006-01-03 Completed University of 00:00:00 [facility] HEPATITIS A 2006-01-03 Completed University of 00:00:00 [facility] HEPATITIS A 2006-01-03 Completed University of 00:00:00 [facility] HEPATITIS A 2006-01-03 Completed University of 00:00:00 [facility] HEPATITIS A 2006-01-03 Completed University of 00:00:00 [facility] HEPATITIS A 2006-01-03 Completed University of 00:00:00 [facility] HEPATITIS A 2006-01-03 Completed University of 00:00:00 [facility] HEPATITIS A 2006-01-03 Completed University of 00:00:00 [facility] HEPATITIS A 2006-01-03 Completed University of 00:00:00 [facility] HEPATITIS A 2006-01-03 Completed University of 00:00:00 [facility] HEPATITIS A 2006-01-03 Completed University of 00:00:00 [facility] HEPATITIS A 2006-01-03 Completed University of 00:00:00 [facility] HEPATITIS A 2006-01-03 Completed University of 00:00:00 [facility] HEPATITIS A 2006-01-03 Completed University of 00:00:00 [facility] HEPATITIS A 2006-01-03 Completed [facility] of 00:00:00 [facility] DTAP 2005-12-06 Completed University of 00:00:00 [facility] Polio (IPV/OPV) 2005-12-06 Completed Universit y of 00:00:00 [facility] MMR 2005-12-06 Completed University of 00:00:00 [facility] DTAP 2005-12-06 Completed University of 00:00:00 [facility] Polio (IPV/OPV) 2005-12-06 Completed [facility]it y of 00:00:00 [facility] MMR 2005-12-06 Completed [facility] of 00:00:00 [facility] DTAP 2005-12-06 Completed University of 00:00:00 [facility] Polio (IPV/OPV) 2005-12-06 Completed Universit y of 00:00:00 [facility] MMR 2005-12-06 Completed University of 00:00:00 [facility] DTaP, Unspecified 2005-12-06 Completed Univers ity of Formulation 00:00:00 [facility] IPV 2005-12-06 Completed University of 00:00:00 [facility] DTaP, Unspecified 2005-12-06 Completed Univers ity of Formulation 00:00:00 [facility] IPV 2005-12-06 Completed [facility] 00:00:00 [facility] DTaP, Unspecified 2005-12-06 Completed Univers ity of Formulation 00:00:00 [facility] IPV 2005-12-06 Completed University of 00:00:00 [facility] DTaP, Unspecified 2005-12-06 Completed Univers ity of Formulation 00:00:00 [facility] IPV 2005-12-06 Completed [facility] of 00:00:00 [facility] DTaP, Unspecified 2005-12-06 Completed Univers ity of Formulation 00:00:00 [facility] [place] [facility] IPV 2005-12-06 Completed [facility] of 00:00:00 [facility] DTaP, Unspecified 2005-12-06 Completed Univers ity of Formulation 00:00:00 [facility] IPV 2005-12-06 Completed University of 00:00:00 [facility] DTaP, Unspecified 2005-12-06 Completed Univers ity of Formulation 00:00:00 [facility] IPV 2005-12-06 Completed [facility] of 00:00:00 [facility] DTaP, Unspecified 2005-12-06 Completed Univers ity of Formulation 00:00:00 [facility] IPV 2005-12-06 Completed University of 00:00:00 [facility] DTaP, Unspecified 2005-12-06 Completed Univers ity of Formulation 00:00:00 [facility] IPV 2005-12-06 Completed University of 00:00:00 [facility] HEPATITIS A 2005-05-04 Completed University of 00:00:00 [facility] HEPATITIS A 2005-05-04 Completed University of 00:00:00 [facility] HEPATITIS A 2005-05-04 Completed University of 00:00:00 [facility] HEPATITIS A 2005-05-04 Completed [facility] of 00:00:00 [facility] HEPATITIS A 2005-05-04 Completed University of 00:00:00 [facility] HEPATITIS A 2005-05-04 Completed University of 00:00:00 [facility] HEPATITIS A 2005-05-04 Completed University of 00:00:00 [facility] HEPATITIS A 2005-05-04 Completed University of 00:00:00 [facility] HEPATITIS A 2005-05-04 Completed [facility] of 00:00:00 [facility] HEPATITIS A 2005-05-04 Completed University of 00:00:00 [facility] HEPATITIS A 2005-05-04 Completed University of 00:00:00 [facility] HEPATITIS A 2005-05-04 Completed University of 00:00:00 [facility] HEPATITIS A 2005-05-04 Completed University of 00:00:00 [facility] HEPATITIS A 2005-05-04 Completed University of 00:00:00 [facility] HEPATITIS A 2005-05-04 Completed [facility] of 00:00:00 [facility] Pneumococcal 7 2004-08-19 Completed University of Conjugate, PCV7 00:00:00 [place] [facility] (Prevnar7) [facility] Pneumococcal 7 2004-08-19 Completed [facility] of Conjugate, PCV7 00:00:00 [place] [facility] (Prevnar7) [facility] Pneumococcal 7 2004-08-19 Completed [facility] of Conjugate, PCV7 00:00:00 [place] [facility] (Prevnar7) [facility] Pneumococcal 7 2004-08-19 Completed [facility] of Conjugate, PCV7 00:00:00 [place] [facility] (Prevnar7) [facility] Pneumococcal 7 2004-08-19 Completed [facility] of Conjugate, PCV7 00:00:00 [place] [facility] (Prevnar7) [facility] Pneumococcal 7 2004-08-19 Completed [facility] of Conjugate, PCV7 00:00:00 [place] [facility] (Prevnar7) [facility] Pneumococcal 7 2004-08-19 Completed [facility] of Conjugate, PCV7 00:00:00 [place] [facility] (Prevnar7) [facility] Pneumococcal 7 2004-08-19 Completed [facility] of Conjugate, PCV7 00:00:00 [place] [facility] (Prevnar7) [facility] Pneumococcal 7 2004-08-19 Completed [facility] of Conjugate, PCV7 00:00:00 [place] [facility] (Prevnar7) [facility] Pneumococcal 7 2004-08-19 Completed [facility] of Conjugate, PCV7 00:00:00 [place] [facility] (Prevnar7) [facility] Pneumococcal 7 2004-08-19 Completed [facility] of Conjugate, PCV7 00:00:00 [place] [facility] (Prevnar7) [facility] Pneumococcal 7 2004-08-19 Completed [facility] of Conjugate, PCV7 00:00:00 [place] [facility] (Prevnar7) [facility] Pneumococcal 7 2004-08-19 Completed [facility] of Conjugate, PCV7 00:00:00 [place] [facility] (Prevnar7) [facility] Pneumococcal 7 2004-08-19 Completed [facility] of Conjugate, PCV7 00:00:00 [place] [facility] (Prevnar7) [facility] Pneumococcal 7 2004-08-19 Completed [facility] of Conjugate, PCV7 00:00:00 [place] [facility] (Prevnar7) [facility] Hep B, Adol or Pedi 2003-06-03 Completed Unive rsity of Dosage 00:00:00 [facility] Hep B, Adol or Pedi 2003-06-03 Completed Unive rsity of Dosage 00:00:00 [facility] Hep B, Adol or Pedi 2003-06-03 Completed Unive rsity of Dosage 00:00:00 [facility] Hep B, Adol or Pedi 2003-06-03 Completed Unive rsity of Dosage 00:00:00 [facility] Hep B, Adol or Pedi 2003-06-03 Completed Unive rsity of Dosage 00:00:00 [facility] Hep B, Adol or Pedi 2003-06-03 Completed Unive rsity of Dosage 00:00:00 [facility] Hep B, Adol or Pedi 2003-06-03 Completed Unive rsity of Dosage 00:00:00 [facility] Hep B, Adol or Pedi 2003-06-03 Completed Unive rsity of Dosage 00:00:00 [facility] Hep B, Adol or Pedi 2003-06-03 Completed Unive rsity of Dosage 00:00:00 [facility] Hep B, Adol or Pedi 2003-06-03 Completed Unive rsity of Dosage 00:00:00 [facility] Hep B, Adol or Pedi 2003-06-03 Completed Unive rsity of Dosage 00:00:00 [facility] Hep B, Adol or Pedi 2003-06-03 Completed Unive rsity of Dosage 00:00:00 [facility] Hep B, Adol or Pedi 2003-06-03 Completed Unive rsity of Dosage 00:00:00 [facility] Hep B, Adol or Pedi 2003-06-03 Completed Unive rsity of Dosage 00:00:00 [facility] Hep B, Adol or Pedi 2003-06-03 Completed Unive rsity of Dosage 00:00:00 [facility] DTAP 2003-01-28 Completed University of 00:00:00 [facility] Pneumococcal 7 2003-01-28 Completed University of Conjugate, PCV7 00:00:00 [place] [facility] ical (Prevnar7) Branch DTAP 2003-01-28 Completed [facility] 00:00:00 [facility] Pneumococcal 7 2003-01-28 Completed University of Conjugate, PCV7 00:00:00 [facility] [place] [facility] (Prevnar7) [facility] DTAP 2003-01-28 Completed [facility] of 00:00:00 [facility] Pneumococcal 7 2003-01-28 Completed University of Conjugate, PCV7 00:00:00 [facility] (Prevnar7) [facility] DTAP 2003-01-28 Completed [facility] of 00:00:00 [facility] Pneumococcal 7 2003-01-28 Completed University of Conjugate, PCV7 00:00:00 [facility] [place] [facility] (Prevnar7) [facility] DTAP 2003-01-28 Completed [facility] of 00:00:00 [facility] Pneumococcal 7 2003-01-28 Completed University of Conjugate, PCV7 00:00:00 [facility] [place] [facility] (Prevnar7) [facility] DTAP 2003-01-28 Completed [facility] of 00:00:00 [facility] Pneumococcal 7 2003-01-28 Completed University of Conjugate, PCV7 00:00:00 [facility] [place] [facility] (Prevnar7) [facility] DTAP 2003-01-28 Completed [facility] of 00:00:00 [facility] Pneumococcal 7 2003-01-28 Completed University of Conjugate, PCV7 00:00:00 [facility] [place] [facility] (Prevnar7) [facility] DTaP, Unspecified 2003-01-28 Completed Univers ity of Formulation 00:00:00 [facility] HIB 4 Dose Schedule 2003-01-28 Completed Unive rsity of 00:00:00 [facility] IPV 2003-01-28 Completed University of 00:00:00 [facility] DTAP 2003-01-28 Completed [facility] of 00:00:00 [facility] Pneumococcal 7 2003-01-28 Completed University of Conjugate, PCV7 00:00:00 [facility] [place] [facility] (Prevnar7) [facility] DTaP, Unspecified 2003-01-28 Completed Univers ity of Formulation 00:00:00 [facility] HIB 4 Dose Schedule 2003-01-28 Completed Unive rsity of 00:00:00 [facility] IPV 2003-01-28 Completed University of 00:00:00 [facility] DTAP 2003-01-28 Completed [facility] of 00:00:00 [facility] Pneumococcal 7 2003-01-28 Completed University of Conjugate, PCV7 00:00:00 [facility] [place] [facility] (Prevnar7) [facility] DTaP, Unspecified 2003-01-28 Completed Univers ity of Formulation 00:00:00 [facility] HIB 4 Dose Schedule 2003-01-28 Completed Unive rsity of 00:00:00 [facility] IPV 2003-01-28 Completed [facility] of 00:00:00 [facility] DTAP 2003-01-28 Completed [facility] of 00:00:00 [facility] Pneumococcal 7 2003-01-28 Completed [facility] of Conjugate, PCV7 00:00:00 [facility] [place] [facility] (Prevnar7) [facility] DTaP, Unspecified 2003-01-28 Completed Univers ity of Formulation 00:00:00 [facility] HIB 4 Dose Schedule 2003-01-28 Completed Unive rsity of 00:00:00 [facility] IPV 2003-01-28 Completed [facility] of 00:00:00 [facility] DTAP 2003-01-28 Completed [facility] of 00:00:00 [facility] Pneumococcal 7 2003-01-28 Completed University of Conjugate, PCV7 00:00:00 [facility] [place] [facility] (Prevnar7) [facility] DTaP, Unspecified 2003-01-28 Completed Univers ity of Formulation 00:00:00 [facility] HIB 4 Dose Schedule 2003-01-28 Completed Unive rsity of 00:00:00 [facility] IPV 2003-01-28 Completed [facility] of 00:00:00 [facility] DTAP 2003-01-28 Completed [facility] 00:00:00 [facility] Pneumococcal 7 2003-01-28 Completed University of Conjugate, PCV7 00:00:00 [facility] [place] [facility] (Prevnar7) [facility] DTaP, Unspecified 2003-01-28 Completed Univers ity of Formulation 00:00:00 [facility] HIB 4 Dose Schedule 2003-01-28 Completed Unive rsity of 00:00:00 [facility] IPV 2003-01-28 Completed [facility] of 00:00:00 [facility] DTAP 2003-01-28 Completed [facility] of 00:00:00 [facility] Pneumococcal 7 2003-01-28 Completed University of Conjugate, PCV7 00:00:00 [facility] [place] [facility] (Prevnar7) [facility] DTaP, Unspecified 2003-01-28 Completed Univers ity of Formulation 00:00:00 [facility] HIB 4 Dose Schedule 2003-01-28 Completed Unive rsity of 00:00:00 [facility] IPV 2003-01-28 Completed [facility] of 00:00:00 [facility] DTAP 2003-01-28 Completed [facility] of 00:00:00 [facility] Pneumococcal 7 2003-01-28 Completed University of Conjugate, PCV7 00:00:00 [facility] [place] [facility] (Prevnar7) [facility] DTaP, Unspecified 2003-01-28 Completed Univers ity of Formulation 00:00:00 [facility] HIB 4 Dose Schedule 2003-01-28 Completed Unive rsity of 00:00:00 [facility] IPV 2003-01-28 Completed [facility] of 00:00:00 [facility] DTAP 2003-01-28 Completed [facility] of 00:00:00 [facility] Pneumococcal 7 2003-01-28 Completed University of Conjugate, PCV7 00:00:00 [facility] [place] [facility] (Prevnar7) [facility] DTaP, Unspecified 2003-01-28 Completed Univers ity of Formulation 00:00:00 [facility] HIB 4 Dose Schedule 2003-01-28 Completed Unive rsity of 00:00:00 [facility] IPV 2003-01-28 Completed [facility] of 00:00:00 [facility] Hep B, Adol or Pedi 2002-06-03 Completed Unive rsity of Dosage 00:00:00 [facility] MMR 2002-06-03 Completed [facility] 00:00:00 [facility] Hep B, Adol or Pedi 2002-06-03 Completed Unive rsity of Dosage 00:00:00 [facility] MMR 2002-06-03 Completed [facility] 00:00:00 [facility] Hep B, Adol or Pedi 2002-06-03 Completed Unive rsity of Dosage 00:00:00 [facility] MMR 2002-06-03 Completed [facility] 00:00:00 [facility] Hep B, Adol or Pedi 2002-06-03 Completed Unive rsity of Dosage 00:00:00 [facility] MMR 2002-06-03 Completed [facility] 00:00:00 [facility] Hep B, Adol or Pedi 2002-06-03 Completed Unive rsity of Dosage 00:00:00 [facility] MMR 2002-06-03 Completed [facility] 00:00:00 [facility] Hep B, Adol or Pedi 2002-06-03 Completed Unive rsity of Dosage 00:00:00 [facility] MMR 2002-06-03 Completed [facility] 00:00:00 [facility] Hep B, Adol or Pedi 2002-06-03 Completed Unive rsity of Dosage 00:00:00 [facility] MMR 2002-06-03 Completed [facility] 00:00:00 [facility] Hep B, Adol or Pedi 2002-06-03 Completed Unive rsity of Dosage 00:00:00 [facility] MMR 2002-06-03 Completed [facility] 00:00:00 [facility] Hep B, Adol or Pedi 2002-06-03 Completed Unive rsity of Dosage 00:00:00 [facility] MMR 2002-06-03 Completed [facility] 00:00:00 [facility] Hep B, Adol or Pedi 2002-06-03 Completed Unive rsity of Dosage 00:00:00 [facility] MMR 2002-06-03 Completed [facility] 00:00:00 [facility] Hep B, Adol or Pedi 2002-06-03 Completed Unive rsity of Dosage 00:00:00 [facility] MMR 2002-06-03 Completed [facility] 00:00:00 [facility] Hep B, Adol or Pedi 2002-06-03 Completed Unive rsity of Dosage 00:00:00 [facility] MMR 2002-06-03 Completed [facility] 00:00:00 [facility] Hep B, Adol or Pedi 2002-06-03 Completed Unive rsity of Dosage 00:00:00 [facility] MMR 2002-06-03 Completed [facility] of 00:00:00 [facility] Hep B, Adol or Pedi 2002-06-03 Completed Unive rsity of Dosage 00:00:00 [facility] MMR 2002-06-03 Completed [facility] of 00:00:00 [facility] Hep B, Adol or Pedi 2002-06-03 Completed Unive rsity of Dosage 00:00:00 [facility] MMR 2002-06-03 Completed [facility] 00:00:00 [facility] Varicella 2002-05-31 Completed University of (varivax)(chicken 00:00:00 [place] [facility] pox[facility] Varicella 2002-05-31 Completed [facility] (varivax)(chicken 00:00:00 [facility] pox) [facility] Varicella 2002-05-31 Completed [facility] (varivax)(chicken 00:00:00 [facility] pox) [facility] Varicella 2002-05-31 Completed [facility] (varivax)(chicken 00:00:00 [facility] pox) [facility] Varicella 2002-05-31 Completed [facility] (varivax)(chicken 00:00:00 [facility] pox) [facility] Varicella 2002-05-31 Completed [facility] (varivax)(chicken 00:00:00 [facility] pox) [facility] Varicella 2002-05-31 Completed [facility] (varivax)(chicken 00:00:00 [facility] pox) [facility] Varicella 2002-05-31 Completed [facility] (varivax)(chicken 00:00:00 [facility] pox) [facility] Varicella 2002-05-31 Completed [facility] (varivax)(chicken 00:00:00 [facility] pox) [facility] Varicella 2002-05-31 Completed [facility] (varivax)(chicken 00:00:00 [facility] pox) [facility] Varicella 2002-05-31 Completed [facility] (varivax)(chicken 00:00:00 [facility] pox) [facility] Varicella 2002-05-31 Completed [facility] (varivax)(chicken 00:00:00 [facility] pox) [facility] Varicella 2002-05-31 Completed [facility] (varivax)(chicken 00:00:00 [facility] pox) [facility] Varicella 2002-05-31 Completed [facility] (varivax)(chicken 00:00:00 [facility] pox) [facility] Varicella 2002-05-31 Completed [facility] (varivax)(chicken 00:00:00 [facility] pox) [facility] HPV Unspecified 2002-05-15 Completed Universit y [facility] 00:00:00 [facility] HPV Unspecified 2002-05-15 Completed Universit y [facility] 00:00:00 [facility] HPV Unspecified 2002-05-15 Completed Universit y of 00:00:00 [facility] HPV Unspecified 2002-05-15 Completed [facility]it y [facility] 00:00:00 [facility] HPV Unspecified 2002-05-15 Completed [facility]it y of 00:00:00 [facility] HPV Unspecified 2002-05-15 Completed [facility]it y [facility] 00:00:00 [facility] HPV Unspecified 2002-05-15 Completed [facility]it y of 00:00:00 [facility] HPV Unspecified 2002-05-15 Completed [facility]it y of 00:00:00 [facility] HPV Unspecified 2002-05-15 Completed [facility]it y of 00:00:00 [facility] HPV Unspecified 2002-05-15 Completed [facility]it y [facility] 00:00:00 [facility] HPV Unspecified 2002-05-15 Completed [facility]it y [facility] 00:00:00 [facility] HPV Unspecified 2002-05-15 Completed [facility]it y [facility] 00:00:00 [facility] HPV Unspecified 2002-05-15 Completed [facility]it y [facility] 00:00:00 [facility] HPV Unspecified 2002-05-15 Completed [facility]it y [facility] 00:00:00 [facility] HPV Unspecified 2002-05-15 Completed Universit y of 00:00:00 [facility] DTAP 2001 Completed [facility] 00:00:00 [facility] DTAP 2001 Completed [facility] 00:00:00 [facility] DTAP 2001 Completed [facility] 00:00:00 [facility] DTAP 2001 Completed [facility] 00:00:00 [facility] DTAP 2001 Completed [facility] 00:00:00 [facility] DTAP 2001 Completed [facility] 00:00:00 [facility] DTAP 2001 Completed [facility] of 00:00:00 [facility] DTaP, Unspecified 2001 Completed Univers ity of Formulation 00:00:00 [facility] Hib-HbOC 2001 Completed [facility] of 00:00:00 [facility] HIB 4 Dose Schedule 2001 Completed Unive rsity of 00:00:00 [facility] DTAP 2001 Completed [facility] of 00:00:00 [facility] DTaP, Unspecified 2001 Completed Univers ity of Formulation 00:00:00 [facility] Hib-HbOC 2001 Completed [facility] of 00:00:00 [facility] HIB 4 Dose Schedule 2001 Completed Unive rsity of 00:00:00 [facility] DTAP 2001 Completed [facility] 00:00:00 [facility] DTaP, Unspecified 2001 Completed Univers ity of Formulation 00:00:00 [facility] Hib-HbOC 2001 Completed [facility] of 00:00:00 [facility] HIB 4 Dose Schedule 2001 Completed Unive rsity of 00:00:00 [facility] DTAP 2001 Completed [facility] of 00:00:00 [facility] DTaP, Unspecified 2001 Completed Univers ity of Formulation 00:00:00 [facility] Hib-HbOC 2001 Completed [facility] of 00:00:00 [facility] HIB 4 Dose Schedule 2001 Completed Unive rsity of 00:00:00 [facility] DTAP 2001 Completed [facility] of 00:00:00 [facility] DTaP, Unspecified 2001 Completed Univers ity of Formulation 00:00:00 [facility] Hib-HbOC 2001 Completed [facility] of 00:00:00 [facility] HIB 4 Dose Schedule 2001 Completed Unive rsity of 00:00:00 [facility] DTAP 2001 Completed [facility] of 00:00:00 [facility] DTaP, Unspecified 2001 Completed [facility] it[facility] of Formulation 00:00:00 [facility] Hib-HbOC 2001 Completed [facility] 00:00:00 [facility] HIB 4 Dose Schedule 2001 Completed Unive rsity of 00:00:00 [facility] DTAP 2001 Completed [facility] 00:00:00 [facility] DTaP, Unspecified 2001 Completed [facility] it[facility] of Formulation 00:00:00 [facility] Hib-HbOC 2001 Completed [facility] 00:00:00 [facility] HIB 4 Dose Schedule 2001 Completed Unive rsity of 00:00:00 [facility] DTAP 2001 Completed [facility] 00:00:00 [facility] DTaP, Unspecified 2001 Completed Univers it[facility] of Formulation 00:00:00 [facility] Hib-HbOC 2001 Completed [facility] 00:00:00 [facility] HIB 4 Dose Schedule 2001 Completed Unive rsity of 00:00:00 [facility] DTAP 2001 Completed [facility] 00:00:00 [facility] DTaP, Unspecified 2001 Completed [facility] it[facility] of Formulation 00:00:00 [facility] Hib-HbOC 2001 Completed [facility] 00:00:00 [facility] HIB 4 Dose Schedule 2001 Completed Unive rsity of 00:00:00 [facility] DTAP 2001 Completed [facility] 00:00:00 [facility] DTAP 2001 Completed [facility] 00:00:00 [facility] DTAP 2001 Completed [facility] 00:00:00 [facility] DTAP 2001 Completed [facility] 00:00:00 [facility] DTAP 2001 Completed [facility] 00:00:00 [facility] DTAP 2001 Completed [facility] 00:00:00 [facility] DTAP 2001 Completed [facility] 00:00:00 [facility] DTaP, Unspecified 2001 Completed [facility] it[facility] of Formulation 00:00:00 [facility] Hib-HbOC 2001 Completed [facility] of 00:00:00 [facility] HIB 4 Dose Schedule 2001 Completed Unive rsity of 00:00:00 [facility] IPV 2001 Completed [facility] 00:00:00 [facility] DTAP 2001 Completed [facility] 00:00:00 [facility] DTaP, Unspecified 2001 Completed Univers it[facility] of Formulation 00:00:00 [facility] Hib-HbOC 2001 Completed [facility] of 00:00:00 [facility] HIB 4 Dose Schedule 2001 Completed Unive rsity of 00:00:00 [facility] IPV 2001 Completed [facility] 00:00:00 [facility] DTAP 2001 Completed [facility] 00:00:00 [facility] DTaP, Unspecified 2001 Completed [facility] ity of Formulation 00:00:00 [facility] Hib-HbOC 2001 Completed [facility] of 00:00:00 [facility] HIB 4 Dose Schedule 2001 Completed Unive rsity of 00:00:00 [facility] IPV 2001 Completed [facility] 00:00:00 [facility] DTAP 2001 Completed [facility] of 00:00:00 [facility] DTaP, Unspecified 2001 Completed [facility] it[facility] of Formulation 00:00:00 [facility] Hib-HbOC 2001 Completed [facility] of 00:00:00 [facility] HIB 4 Dose Schedule 2001 Completed Unive rsity of 00:00:00 [facility] IPV 2001 Completed [facility] 00:00:00 [facility] DTAP 2001 Completed [facility] 00:00:00 [facility] DTaP, Unspecified 2001 Completed [facility] ity of Formulation 00:00:00 [facility] Hib-HbOC 2001 Completed [facility] 00:00:00 [facility] HIB 4 Dose Schedule 2001 Completed Unive rsity of 00:00:00 [facility] IPV 2001 Completed [facility] 00:00:00 [facility] DTAP 2001 Completed [facility] 00:00:00 [facility] DTaP, Unspecified 2001 Completed [facility] it[facility] of Formulation 00:00:00 [facility] Hib-HbOC 2001 Completed [facility] 00:00:00 [facility] HIB 4 Dose Schedule 2001 Completed Unive rsity of 00:00:00 [facility] IPV 2001 Completed [facility] 00:00:00 [facility] DTAP 2001 Completed [facility] 00:00:00 [facility] DTaP, Unspecified 2001 Completed [facility] it[facility] of Formulation 00:00:00 [facility] Hib-HbOC 2001 Completed [facility] 00:00:00 [facility] HIB 4 Dose Schedule 2001 Completed Unive rsity of 00:00:00 [facility] IPV 2001 Completed [facility] 00:00:00 [facility] DTAP 2001 Completed [facility] 00:00:00 [facility] DTaP, Unspecified 2001 Completed [facility] it[facility] of Formulation 00:00:00 [facility] Hib-HbOC 2001 Completed [facility] 00:00:00 [facility] HIB 4 Dose Schedule 2001 Completed Unive rsity of 00:00:00 [facility] IPV 2001 Completed [facility] 00:00:00 [facility] DTAP 2001 Completed [facility] 00:00:00 [facility] DTaP, Unspecified 2001 Completed [facility] it[facility] of Formulation 00:00:00 [facility] Hib-HbOC 2001 Completed [facility] of 00:00:00 [facility] HIB 4 Dose Schedule 2001 Completed Unive rsity of 00:00:00 [facility] IPV 2001 Completed [facility] 00:00:00 [facility] Hep B, Adol or Pedi 2001 Completed Unive rsity of Dosage 00:00:00 [facility] DTAP 2001 Completed [facility] of 00:00:00 [facility] DTaP, Unspecified 2001 Completed [facility] it[facility] of Formulation 00:00:00 [facility] HIB 4 Dose Schedule 2001 Completed Unive rsity of 00:00:00 [facility] IPV 2001 Completed [facility] 00:00:00 [facility] Hep B, Adol or Pedi 2001 Completed Unive rsity of Dosage 00:00:00 [facility] DTAP 2001 Completed [facility] 00:00:00 [facility] Hep B, Adol or Pedi 2001 Completed Unive rsity of Dosage 00:00:00 [facility] DTAP 2001 Completed [facility] of 00:00:00 [facility] Hep B, Adol or Pedi 2001 Completed Unive rsity of Dosage 00:00:00 [facility] DTAP 2001 Completed [facility] 00:00:00 [facility] Hep B, Adol or Pedi 2001 Completed Unive rsity of Dosage 00:00:00 [facility] DTAP 2001 Completed [facility] 00:00:00 [facility] Hep B, Adol or Pedi 2001 Completed Unive rsity of Dosage 00:00:00 [facility] DTAP 2001 Completed [facility] 00:00:00 [facility] Hep B, Adol or Pedi 2001 Completed Unive rsity of Dosage 00:00:00 [facility] DTAP 2001 Completed [facility] 00:00:00 [facility] Hep B, Adol or Pedi 2001 Completed Unive rsity of Dosage 00:00:00 [facility] DTAP 2001 Completed [facility] 00:00:00 [facility] DTaP, Unspecified 2001 Completed [facility] it[facility] Formulation 00:00:00 [facility] HIB 4 Dose Schedule 2001 Completed Unive rsity of 00:00:00 [facility] IPV 2001 Completed [facility] 00:00:00 [facility] Hep B, Adol or Pedi 2001 Completed Unive rsity of Dosage 00:00:00 [facility] DTAP 2001 Completed [facility] 00:00:00 [facility] DTaP, Unspecified 2001 Completed [facility] of Formulation 00:00:00 [facility] HIB 4 Dose Schedule 2001 Completed Unive rsity of 00:00:00 [facility] IPV 2001 Completed [facility] 00:00:00 [facility] Hep B, Adol or Pedi 2001 Completed Unive rsity of Dosage 00:00:00 [facility] DTAP 2001 Completed [facility] 00:00:00 [facility] DTaP, Unspecified 2001 Completed [facility] it[facility] of Formulation 00:00:00 [facility] HIB 4 Dose Schedule 2001 Completed Unive rsity of 00:00:00 [facility] IPV 2001 Completed [facility] 00:00:00 [facility] Hep B, Adol or Pedi 2001 Completed Unive rsity of Dosage 00:00:00 [facility] DTAP 2001 Completed [facility] 00:00:00 [facility] DTaP, Unspecified 2001 Completed Univers ity of Formulation 00:00:00 [facility] HIB 4 Dose Schedule 2001 Completed Unive rsity of 00:00:00 [facility] IPV 2001 Completed [facility] 00:00:00 [facility] Hep B, Adol or Pedi 2001 Completed Unive rsity of Dosage 00:00:00 [facility] DTAP 2001 Completed [facility] 00:00:00 [facility] DTaP, Unspecified 2001 Completed [facility] ity of Formulation 00:00:00 [facility] HIB 4 Dose Schedule 2001 Completed Unive rsity of 00:00:00 [facility] IPV 2001 Completed [facility] 00:00:00 [facility] Hep B, Adol or Pedi 2001 Completed Unive rsity of Dosage 00:00:00 [facility] DTAP 2001 Completed [facility] of 00:00:00 [facility] DTaP, Unspecified 2001 Completed Univers ity of Formulation 00:00:00 [facility] HIB 4 Dose Schedule 2001 Completed Unive rsity of 00:00:00 [facility] IPV 2001 Completed [facility] 00:00:00 [facility] Hep B, Adol or Pedi 2001 Completed Unive rsity of Dosage 00:00:00 [facility] DTAP 2001 Completed [facility] 00:00:00 [facility] DTaP, Unspecified 2001 Completed [facility] it[facility] Formulation 00:00:00 [facility] HIB 4 Dose Schedule 2001 Completed Unive rsity of 00:00:00 [facility] IPV 2001 Completed [facility] 00:00:00 [facility] Hep B, Adol or Pedi 2001 Completed Unive rsity of Dosage 00:00:00 [facility] DTAP 2001 Completed [facility] 00:00:00 [facility] DTaP, Unspecified 2001 Completed [facility] Formulation 00:00:00 [facility] HIB 4 Dose Schedule 2001 Completed Unive rsity of 00:00:00 [facility] IPV 2001 Completed [facility] 00:00:00 [facility] Hep B, Adol or Pedi 2001 Completed Unive rsity of Dosage 00:00:00 [facility] Hep B, Adol or Pedi 2001 Completed Unive [facility]ity of Dosage 00:00:00 [facility] Hep B, Adol or Pedi 2001 Completed Unive [facility]ity of Dosage 00:00:00 [facility] Hep B, Adol or Pedi 2001 Completed [facility]ity of Dosage 00:00:00 [facility] Hep B, Adol or Pedi 2001 Completed [facility]ive [facility] of Dosage 00:00:00 [facility] Hep B, Adol or Pedi 2001 Completed [facility] of Dosage 00:00:00 [facility] Hep B, Adol or Pedi 2001 Completed [facility] of Dosage 00:00:00 [facility] Hep B, Adol or Pedi 2001 Completed [facility] Dosage 00:00:00 [facility] [facility] Hep B, Adol or Pedi 2001 Completed Unive rsity of Dosage 00:00:00 [facility] Hep B, Adol or Pedi 2001 Completed Unive rsity of Dosage 00:00:00 [facility] Hep B, Adol or Pedi 2001 Completed Unive rsity of Dosage 00:00:00 [facility] Hep B, Adol or Pedi 2001 Completed Unive rsity of Dosage 00:00:00 [facility] Hep B, Adol or Pedi 2001 Completed Unive rsity of Dosage 00:00:00 [facility] Hep B, Adol or Pedi 2001 Completed Unive rsity of Dosage 00:00:00 [facility] Hep B, Adol or Pedi 2001 Completed Unive rsity of Dosage 00:00:00 [facility] Influenza Virus Unknown Completed Universit y of Vaccine Quad .5 mL [facility] 6+ MO Branch (FLUZONE/FLULAVAL/FL UARIX) TDAP (ADACEL) Unknown Completed [facility] HEPATITIS A Unknown Completed [facility] HEPATITIS A Unknown Completed [facility] Hep B, Adol or Pedi Unknown Completed Unive rsity of Dosage [facility] Hep B, Adol or Pedi Unknown Completed Unive rsity of Dosage [facility] Hep B, Adol or Pedi Unknown Completed Unive rsity of [facility] Meningococcal Unknown Completed [facility] Meningococcal Unknown Completed [facility] MMR Unknown Completed [facility] Varicella Unknown Completed [facility] (varivax)([facility]icken [place] [facility] pox) Branch Varicella Unknown Completed University (varivax)(chicken [place] [facility] [place] pox) Branch HPV Unspecified Unknown Completed [facility] HPV Unspecified Unknown Completed [facility] DTAP Unknown Completed [facility] DTAP Unknown Completed [facility] DTAP Unknown Completed [facility] DTAP Unknown Completed [facility] Hep B, Adol or Pedi Unknown Completed Unive rsity of [facility] HPV Unspecified Unknown Completed [facility] TDAP Unknown Completed [facility] Pneumococcal 7 Unknown Completed [place] Conjugate, PCV7 [facility] (Prevnar7) Branch Pneumococcal 7 Unknown Completed [facility] Conjugate, PCV7 [facility] (Prevnar7) Branch DTaP, Unspecified Unknown Completed Univers ity of Formulation [facility] DTaP, Unspecified Unknown Completed Univers ity of Formulation [facility] DTaP, Unspecified Unknown Completed Univers ity of Formulation [facility] DTaP, Unspecified Unknown Completed Univers ity of Formulation [facility] DTaP, Unspecified Unknown Completed Univers ity of Formulation [facility] Flu Trivalent Unknown Completed [facility] Influenza Virus Unknown Completed Universit y of Vaccine - Whole [facility] Branch Hib-HbOC Unknown Completed [facility] Hib-HbOC Unknown Completed [facility] HIB 4 Dose Schedule Unknown [facility] 4 Dose Schedule Unknown Com[facility] HIB 4 Dose Schedule Unknown Completed Unive rsity [facility] HIB 4 Dose Schedule Unknown Completed [facility] HPV Unknown Completed [facility] HPV Unknown Completed [facility] Meningococcal Unknown Completed [facility] alejandra (groups A, C, Y and Branc h W-135) conjugate vaccine (MCV4P) Meningococcal Unknown Completed [facility] alejandra (groups A, C, Y and Branc h W-135) conjugate vaccine (MCV4P) IPV Unknown Completed [facility] IPV Unknown Completed [facility] IPV Unknown Completed [facility] IPV Unknown Completed [facility] Influenza Virus Unknown Completed Universit y Vaccine Quad .5 mL [facility] IM 6+ MO Branch (FLUZONE/FLULAVAL/FL UARIX) TDAP (ADACEL) Unknown Completed [facility] HEPATITIS A Unknown Completed [facility] HEPATITIS A Unknown Completed [facility] Hep B, Adol or Pedi Unknown Completed Unive rsity of Dosage [facility] Hep B, Adol or Pedi Unknown Completed Unive rsity of Dosage [facility] Hep B, Adol or Pedi Unknown Completed Unive rsity of Dosage [facility] Meningococcal Unknown Completed [facility] Meningococcal Unknown Completed [facility] MMR Unknown Completed [facility] Varicella Unknown Completed [facility] (varivax)(chicken [place] [facility] [place] pox) Branch Varicella Unknown Completed University (varivax)(chicken [place] [facility] [place] pox) Branch HPV Unspecified Unknown Completed [facility] HPV Unspecified Unknown Completed [facility] DTAP Unknown Completed [facility] DTAP Unknown Completed [facility] DTAP Unknown Completed [facility] DTAP Unknown Completed [facility] Hep B, Adol or Pedi Unknown Completed Unive rsity of Dosage [facility] HPV Unspecified Unknown Completed [facility] TDAP Unknown Completed [facility] Pneumococcal 7 Unknown Completed [facility] Conjugate, PCV7 [facility] ical (Prevnar7) Branch Pneumococcal 7 Unknown Completed [facility] Conjugate, PCV7 [facility] ical (Prevnar7) Branch DTaP, Unspecified Unknown Completed Univers ity of Formulation [facility] DTaP, Unspecified Unknown Completed Univers ity of Formulation [facility] DTaP, Unspecified Unknown Completed Univers ity of Formulation [facility] DTaP, Unspecified Unknown Completed Univers ity of Formulation [facility] DTaP, Unspecified Unknown Completed Univers ity of Formulation [facility] Flu Trivalent Unknown Completed [facility] Influenza Virus Unknown Completed Universit y of Vaccine - Whole [facility] ical Branch Hib-HbOC Unknown Completed [facility] Hib-HbOC Unknown Completed [facility] HIB 4 Dose Schedule Unknown Com[facility] HIB 4 Dose Schedule Unknown Com[facility] HIB 4 Dose Schedule Unknown Completed [facility] HIB 4 Dose Schedule Unknown Com[facility] HPV Unknown Completed [facility] HPV Unknown Completed [facility] Meningococcal Unknown Completed [facility] alejandra (groups A, C, Y and Branc h W-135) conjugate vaccine (MCV4P) Meningococcal Unknown Completed [facility] alejandra (groups A, C, Y and Branc h W-135) conjugate vaccine (MCV4P) IPV Unknown Completed [facility] IPV Unknown Completed [facility] IPV Unknown Completed [facility] IPV Unknown Completed [facility] Influenza Virus Unknown Completed Universit y of Vaccine Quad .5 mL [facility] 6+ MO Branch (FLUZONE/FLULAVAL/FL UARIX) TDAP (ADACEL) Unknown Completed [facility] HEPATITIS A Unknown Completed [facility] HEPATITIS A Unknown Completed [facility] Hep B, Adol or Pedi Unknown Completed Unive rsity [facility] Hep B, Adol or Pedi Unknown Completed Unive rsity [facility] Hep B, Adol or Pedi Unknown Completed Unive rsity of [facility] Meningococcal Unknown Completed [facility] Meningococcal Unknown Completed [facility] MMR Unknown Completed [facility] Varicella Unknown Completed [facility] (varivax)([facility]icken [place] [facility] pox) Branch Varicella Unknown Completed [facility] (varivax[place]icken [place] [facility] pox) Branch HPV Unspecified Unknown Completed [facility] HPV Unspecified Unknown Completed Universit y [facility] DTAP Unknown Completed [facility] DTAP Unknown Completed [facility] DTAP Unknown Completed [facility] DTAP Unknown Completed [facility] Hep B, Adol or Pedi Unknown Completed Unive rsity of [facility] HPV Unspecified Unknown Completed Universit y [facility] TDAP Unknown Completed [facility] Pneumococcal 7 Unknown Completed [place] of Conjugate, PCV7 [facility] (Prevnar7) Branch Pneumococcal 7 Unknown Completed [place] Conjugate, PCV7 [facility] (Prevnar7) Branch DTaP, Unspecified Unknown Completed Univers ity of Formulation [facility] DTaP, Unspecified Unknown Completed Univers ity of Formulation [facility] DTaP, Unspecified Unknown Completed Univers ity of Formulation [facility] DTaP, Unspecified Unknown Completed Univers ity of Formulation [facility] DTaP, Unspecified Unknown Completed Univers ity of Formulation [facility] Flu Trivalent Unknown Completed [facility] Influenza Virus Unknown Completed Universit y of Vaccine - Whole [facility] Branch Hib-HbOC Unknown Completed [facility] Hib-HbOC Unknown Completed [facility] HIB 4 Dose Schedule Unknown Completed Unive [facility] HIB 4 Dose Schedule Unknown Completed Unive [facility] HIB 4 Dose Schedule Unknown Completed Unive [facility] HIB 4 Dose Schedule Unknown Completed Unive [facility] HPV Unknown Completed [facility] HPV Unknown Completed [facility] Meningococcal Unknown Completed [facility] alejandra (groups A, C, Y and Branc h W-135) conjugate vaccine (MCV4P) Meningococcal Unknown Completed [facility] alejandra (groups A, C, Y and Branc h W-135) conjugate vaccine (MCV4P) IPV Unknown Completed [facility] IPV Unknown Completed [facility] IPV Unknown Completed [facility] IPV Unknown Completed [facility] Vital Signs Vital Name Observation Time Observation Value Comments Source Systolic blood 2023-01-08 19:44:00 133 mm[Hg] [facility] Diastolic blood 2023-01-08 19:44:00 69 mm[Hg] Unive [facility] Heart rate 2023-01-08 19:44:00 85 /min [facility] Body temperature 2023-01-08 19:44:00 36.94 Ciera [facility] Respiratory rate 2023-01-08 19:44:00 16 /min [facility] Body height 2023-01-08 19:44:[address] [facility] Body weight 2023-01-08 19:44:00 68.675 kg [facility]i [facility] BMI 2023-01-08 19:44:00 22.36 kg/m2 Universi ty [facility] Oxygen saturation in 2023-01-08 19:44:00 100 /min University of Arterial blood by [facility] Pulse oximetry Branch Systolic blood 2022-11-26 19:35:00 123 mm[Hg] Univer sity of pressure [facility] Diastolic blood 2022-11-26 19:35:00 66 mm[Hg] Unive rsity of pressure [facility] Heart rate 2022-11-26 19:35:00 72 /min [facility]i ty [facility] Respiratory rate 2022-11-26 19:35:00 16 /min Univ ersity of [facility] Body weight 2022-11-26 19:35:00 63.504 kg [facility]i [facility] BMI 2022-11-26 19:35:00 20.67 kg/m2 [facility] Oxygen saturation in 2022-11-26 19:35:00 100 /min University of Arterial blood by [facility] Pulse oximetry Branch Systolic blood 2022-08-17 13:38:00 116 mm[Hg] Univer sity of pressure [facility] Diastolic blood 2022-08-17 13:38:00 78 mm[Hg] Unive rsity of pressure [facility] Heart rate 2022-08-17 13:38:00 73 /min [facility]i [facility] Respiratory rate 2022-08-17 13:38:00 18 /min Univ ersity of [facility] Body height 2022-08-17 13:38:00 175.3 cm [facility] Body weight 2022-08-17 13:38:00 67.132 kg [facility] BMI 2022-08-17 13:38:00 21.86 kg/m2 [facility] Systolic blood 2022-07-03 20:12:00 118 mm[Hg] Univer sity of [facility] Diastolic blood 2022-07-03 20:12:00 72 mm[Hg] Unive rsity of pressure [facility] Heart rate 2022-07-03 20:12:00 71 /min [facility] Body temperature 2022-07-03 20:12:00 36.89 Ciera Univ ers[facility] [place] [facility] [place] Respiratory rate 2022-07-03 20:12:00 18 /min Univ ers[facility] [place] Body height 2022-07-03 20:12:00 175.3 cm [facility] [place] Body weight 2022-07-03 20:12:00 66.679 kg [facility] BMI 2022-07-03 20:12:00 21.71 kg/m2 [facility] Systolic blood 2021-08-03 20:39:00 128 mm[Hg] Univer sity of [facility] [place] Diastolic blood 2021-08-03 20:39:00 77 mm[Hg] [facility]ive [facility] Heart rate 2021-08-03 20:39:00 80 /min [facility] [place] Body temperature 2021-08-03 20:39:00 37 Ciera Univ ersity [facility] [place] Respiratory rate 2021-08-03 20:39:00 18 /min Univ ersity of [facility] Body height 2021-08-03 20:39:00 175.3 cm [facility] Body weight 2021-08-03 20:39:00 62.143 kg [facility] BMI 2021-08-03 20:39:00 20.23 kg/m2 [facility] [place] Procedures Procedure Date / Time Performed Performing Clinician [facility] e DISCLOSURE AND 2023-01-08 05:01:00 Doctor Unassigned, No [facility] CONSENT, MEDICAL AND Name Medical [facility] SURGICAL PROCEDURES POCT TEST 2023-01-08 00:00:00 Jaguar Castillo [facility] ASSIGNMENT OF BENEFITS 2022-11-26 20:04:56 Doctor Unassigned, No [facility] CONSENT/REFUSAL FOR 2022-11-26 19:28:45 Doctor Unassigned, No [facility] DIAGNOSIS AND Name Medical Branch TREATMENT ASSIGNMENT OF BENEFITS 2022-08-17 13:22:07 Doctor Unassigned, No [facility] Branch POCT TEST 2022-08-17 00:00:00 Jaguar Castillo [facility] Encounters Start End Encounter Admission Attending Care Care Encounter Source Date/Time Date/Time Type Type Clinicians Facility Department ID 2021-02-28 Emergency [facility] [id number] Univers 19:47:53 ity of [facility] 2021-02-28 Emergency [facility] [id number] Univers 16:45:58 ity [facility] 2021-02-25 Outpatient [facility] [id number] Univers 02:17:58 ity of [facility] 2021-02-25 Outpatient P [facility] [id number] Univers 02:17:13 ity of [facility] 2021-02-24 Outpatient P [facility] [id number] Univers 22:04:44 ity of [facility] 2021-02-24 Outpatient P [facility] [id number] Univers 19:52:08 ity of [facility] 2021-02-24 Outpatient P [facility] [id number] Univers 17:45:22 ity [facility] 2021-02-24 Outpatient P [facility] [id number] Univers 17:45:17 ity [facility] 2023-04-05 2023-04-05 Outpatient R DANNY MURRAY [facility] [id number] Univers 13:30:00 13:30:00 DANNY MURRAY ity [facility] 2023-04-02 2023-04-02 Outpatient R JAGUAR CASTILLO [facility] B [id number] Univers 14:30:00 14:30:00 JAGUAR CASTILLO erinn [facility] 2023-01-30 2023-01-30 Refill Anna [facility] [id number] Univers 00:00:00 00:00:00 Jaguar [place] [id number] it y of WOMEN'S [id number] [facility] [id number] [place] [address] Branch 2023-01-08 2023-01-08 Outpatient R JAGUAR CASTILLO [facility] B [id number] Univers 14:30:00 15:09:21 JAGUAR CASTILLO erinn [facility] 2023-01-08 2023-01-08 Office [facility] 1.2.840.114 [id number] Univers 14:30:00 15:09:21 Visit Jaguar [place] [id number] it y [id number] [id number] [facility] [address] [place] 2023-01-08 2023-01-08 Orders Doctor MARI 1.2.840.114 [id number] Univers 00:00:00 00:00:00 Only Unassigned, KIM [id number] ity of [place] [facility] [id number] Vijay [id number] [facility] 009 Branch 2023-01-02 2023-01-02 Outpatient R RIVASLULU JAGUAR [facility] B [id number] Univers 14:00:00 14:00:00 ANNAJAGUAR [facility] 2023-01-01 2023-01-01 Telephone [facility] 1.2.840.11 [id number] Univers 00:00:00 00:00:00 Jaguar [place] [id number] it [place] [id number] [place] [facility] [id number] [address] 2022-12-18 2022-12-18 Outpatient R RIVASLULU JAGUAR [facility] B [id number] Univers 15:30:00 15:30:00 JAGUAR CASTILLO [facility] 2022-11-26 2022-11-26 Emergency X Windy MCLEAN [facility] ERT [id number] Univers 14:37:00 15:14:00 ity of [facility] 2022-11-26 2022-11-26 Emergency Windy Mclean [facility] 1.2.840.114 [id number] Univers 14:37:00 15:14:00 Shanda BERRIOS 350.1.13.10 i [id number] [id number] [facility] 084 Branch 2022-08-21 2022-08-21 Outpatient R PERRY REGAN [facility] [id number] Univers 08:00:00 08:00:00 PERRY REGAN ity [facility] 2022-08-21 2022-08-21 Telephone Anna [facility] PRICE 1.2.840.11 [id number] Univers 00:00:00 00:00:00 Jaguar [place] 350.1.13.10 it y [id number] [place] [id number] [address] 2022-08-17 2022-08-17 Outpatient R JAGUAR CASTILLO [facility] B [id number] Univers 08:15:00 08:54:13 JAGUAR CASTILLO [facility] 2022-08-17 2022-08-17 [facility] 1.2.840.114 [id number] Univers 08:15:00 08:54:13 Visit Jaguar [place] [id number] it y [place] [id number] [address] 2022-08-17 2022-08-17 Orders Doctor MARI 1.2.840.114 [id number] Univers 00:00:00 00:00:00 Only Unassigned, KIM 350.1.13.10 ity of [place] [facility] 4.2.7.2.686 Vijay [id number] [place] [address] Branch 2022-08-14 2022-08-14 Outpatient R JAGUAR CASTILLO [facility] B [id number] Univers 15:00:00 15:00:00 JAGUAR CASTILLO [facility] 2022-08-03 2022-08-03 Outpatient R NICHOLE [facility] [id number] Univers 15:30:00 15:30:00 JUANA sandy [facility] 2022-08-03 2022-08-03 Outpatient R JAGUAR CASTILLO [facility] B [id number] Univers 11:00:00 11:00:00 JAGUAR CASTILLO iterinn [facility] 2022-07-04 2022-07-04 Case Nichole [facility] [id number] Univers 00:00:00 00:00:00 Management Juana H[place] [id number] ity of [facility] [id number] [id number] La dical NAL [address] [place] [address] 2022-07-03 2022-07-[address] [facility] [id number] Univers 14:00:00 14:35:39 JUANA quanerinn [facility] 2022-07-03 2022-07-03 Office Nichole [facility] [id number] [facility] 14:00:00 14:35:39 Visit Juana BERRIOS 350.1.13.10 i ty of [facility] [id number] [id number] La dical NAL [address] [place] [address] 2022-01-09 2022-01-09 Outpatient R NICHOLE [facility] [id number] Univers 09:30:00 09:30:00 JUANA sandy [facility] 2021-08-05 2021-08-05 Patient Doctor [facility] 1.2.840.114 [id number] Univers 00:00:00 00:00:00 Secure Msg Unassigned, YASH 350.1.13.10 ity of [place] 4.2.[place].2.[place] [id number] La dical NAL [address] [place] [address] 2021-08-04 2021-08-04 Case Nichole [facility] [id number] Univers 00:00:00 00:00:00 Management Juana YASH [id number] ity of [facility] [id number] [place] [id number] La dical NAL [address] [place] [address] 2021-08-03 2021-08-03 Proj Engineer Mika, Luigi [facility] 1.2.8 [id number] Univers 16:30:00 16:45:00 Visit Juana Varela 350.1.13.10 ity of [facility] 4.2.7.2.686 [place] [id number] La dical NAL [address] [facility] 2021-08-03 2021-08-03 Outpatient R NICHOLE [facility] [id number] Univers 15:30:00 16:14:54 JUANA ity [facility] 2021-08-03 2021-08-03 [facility] [id number] Univers 15:30:00 16:14:54 Visit Juana BERRIOS 350.1.13.10 i ty of [facility] 4.2.7.2.[place] [id number] La dical NAL 134 [facility] 2021-08-03 2021-08-03 Outpatient R NICHOLE [facility] [id number] Univers 15:30:00 16:14:54 JUANA quany [facility] 2021-08-03 2021-08-03 Orders Doctor MARI 1.2.840.114 [id number] Univers 00:00:00 00:00:00 Only Unassigned, KIM 350.1.13.10 ity of [place] [facility] 4.2.7.2.686 Vijay as [id number] [address] 2021-01-11 2021-01-11 Telephone Adum, [facility] [id number] [id number] Univers 00:00:00 00:00:00 Jane Berrios 350.1.13.10 [place] [phone] La dical nal 134 [facility] 2021-01-11 2021-01-11 Patient Doctor [facility] 1.2.840.114 [id number] Univers 00:00:00 00:00:00 Secure Msg Unassigned, YASH 350.1.13.10 ity [place].2.[place] [id number] La dical NAL 134 [facility] 2020-12-29 2020-12-29 Emergency [facility] [id number] Univers 17:46:00 19:55:00 Cait Cooper Yash 350.1.13.10 i ty of [place] 4.2.7.2.686 [facility] [id number] [facility] [address] [place] 2020-12-16 2020-12-16 Emergency , [facility] [id number] Univers 14:16:00 15:01:00 Shawn Yash 350.1.13.10 i ty of [place] 4.2.7.2.686 [facility] [id number] [facility] [address] 2020-12-16 2020-12-16 Orders Doctor MARI 1.2.840.114 [id number] Univers 00:00:00 00:00:00 Only Unassigned, KIM 350.1.13.10 ity of [place] [facility] 4.2.7.2.686 Vijay as [id number] [facility] 009 Branch 2020-09-28 2020-09-28 [facility]phone [facility] 1.2.840.114 [id number] Univers 00:00:00 00:00:00 Juana Berrios 350.1.13.10 i ty [place] [phone] La dical nal 134 [facility] 2020-09-24 2020-09-24 Proj Engineer Mika, Lu[facility] 1.2.8 40.114 [id number] Univers 12:07:59 12:22:59 Visit Jane Motley 350.1.13.10 it[phone] [place] dical nal 353 [facility] 2020-09-24 2020-09-24 Office Tiesha [facility] 1.2.840.114 [id number] Univers 11:07:19 11:56:17 Visit Jane Berrios 350.1.13.10 [place] [phone] La dical nal 134 [facility] 2020-09-24 2020-09-24 Outpatient R ADUM, [facility] [id number] Univers 11:00:00 11:00:00 JANE quanreinn [facility] 2020-09-24 2020-09-24 Orders Doctor MARI 1.2.840.114 [id number] Univers 00:00:00 00:00:00 Only Unassigned, KIM 350.1.13.10 ity of [place] [facility] 4.2.7.2.686 [place]ijay as [phone] [address] 2020-09-08 2020-09-08 Hospital [facility] 1.2.840.114 [id number] Univers 14:15:47 23:59:00 Encounter Merary [facility] 350.1.13.10 ity of Surgical 4.2.7.2.686 [place] Specialti [phone] La dical es 809 [facility] 2020-09-08 2020-09-[address] [facility] [id number] Univers 14:15:47 23:59:00 MERARY sandy [facility] 2020-09-08 2020-09-08 [facility] 1.2.840.114 [id number] Univers 13:42:37 13:57:37 Visit [facility] 350.1.13.10 it y of Surgical 4.2.7.2.686 [place] Specialti [phone] Me dical es 198 [facility] 2020-09-08 2020-09-[address] [facility] [id number] Univers 13:45:00 13:45:00 MERARYDIONICIO sandy [facility] 2020-07-27 2020-07-27 Telephone [facility] 1.2.840.114 [id number] 00:00:00 00:00:00 Juana Berrios 350.1.13.10 [place] 4.2.7.2.686 Professio [phone] [address] 2020-07-27 2020-07-27 Telephone [facility] 1.2.840.114 [id number] Univers 00:00:00 00:00:00 Juana Berrios 350.1.13.10 i [place] [phone] [address] 2020-07-21 2020-07-21 [facility] 1.2.018.082 [id number] 15:13:53 15:43:53 Visit Juana Berrios 350.1.13.10 [place] 4.2.7.2.686 Professio [phone] [address] 2020-07-21 2020-07-21 [facility] 1.2.430.034 [id number] Univers 15:13:53 15:43:53 Visit Juana Berrios 350.1.13.10 i [place] [phone] [address] 2020-07-21 2020-07-[address] [facility] [id number] Univers 15:15:00 15:15:00 [facility] 2020-07-21 2020-07-21 Orders Doctor MARI 1.2.840.114 [id number] Univers 00:00:00 00:00:00 Only Unassigned, KIM 350.1.13.10 ity of [place] [facility] 4.2.7.2.686 [place] as [phone] [address] 2020-06-14 2020-06-[address] [facility] [id number] Univers 16:30:00 16:30:00 [facility] 2020-05-31 2020-05-31 Outpatient Conchita VARELA [facility] [id number] Univers 13:30:00 13:30:00 [facility] 2019-12-11 2019-12-11 Telephone Lamont Erazo [facility] 1.2.840.114 [id number] Univers 00:00:00 00:00:00 Jac Berrios 350.1.13.10 i [place] [phone] [address] 2019-12-09 2019-12-09 Telephone Lamont Erazo [facility] 1.2.840.114 [id number] Univers 00:00:00 00:00:00 Jac Berrios 350.1.13.10 i ty [place] [phone] La dic[address] 2019-11-28 2019-11-28 Routine Lamont Erazo [facility] 1.2.840.114 [id number] Univers 13:42:21 15:14:13 JoycejackelynJuana 350.1.13.10 ity of [place] [phone] [address] 2019-11-28 2019-11-28 Outpatient R NICHOLE [facility] [id number] Univers 13:45:00 13:45:00 JUANA ity [facility] 2019-11-28 2019-11-28 Orders Doctor MARI 1.2.840.114 [id number] Univers 00:00:00 00:00:00 Only Unassigned, KIM 350.1.13.10 ity of [place] [facility] 4.2.7.2.686 [place] as [phone] [address] 2019-11-27 2019-11-27 Outpatient R NICHOLE [facility] [id number] Univers 11:30:00 11:30:00 JUANA ity [facility] 2019-11-04 2019-11-04 Nurse Nurse, [facility] 1.2.840.114 [id number] Univers 10:46:42 10:55:29 Visit Lamont Erazo Jac Berrios 350.1.13.10 it[place] [phone] [address] 2019-11-04 2019-11-04 Outpatient R [facility] [id number] Univers 10:30:00 10:30:00 ity of [facility] 2019-10-27 2019-10-29 Hospital Lamont Erazo [facility] 1.2.840.114 [id number] Univers 12:07:00 18:40:00 Encounter Cam Jaffrey 350.1.13.10 ity of [place] 4.2.7.2.686 [place] [facility] [phone] [facility] [address] 2019-10-27 2019-10-27 Orders Doctor MARI 1.2.840.114 [id number] Univers 00:00:00 00:00:00 Only Unassigned, KIM 350.1.13.10 ity of [place] [facility] 4.2.7.2.686 [place] as [phone] [facility] [address] 2019-10-23 2019-10-23 Laboratory Only, Adc Test [facility] 1.2.840. 114 [id number] Univers 15:19:20 15:34:20 Only Lamont Erazo 350.1.13.10 ity of [place] 4.2.7.2.686 [facility] [phone] [facility] [address] 2019-10-23 2019-10-23 Routine Lamont Erazo [facility] 1.2.245.693 [id number] Univers 14:22:29 14:37:29 Jac Herton 350.1.13.10 ity of [place].7.2.[place] [phone] [facility] 134 [facility] 2019-10-23 2019-10-23 Outpatient R LAMONT ERAZO [facility] [id number] Univers 14:15:00 14:15:00 ity of [facility] 2019-10-23 2019-10-23 Orders Doctor GUERRA 1.2.840.114 [id number] Univers 00:00:00 00:00:00 Only Unassigned, KIM 350.1.13.10 ity of [place] [facility] 4.2.7.2.686 [place] as [phone] [address] 2019-10-22 2019-10-22 Orders Doctor GUERRA 1.2.840.114 [id number] Univers 00:00:00 00:00:00 Only Unassigned, KIM 350.1.13.10 ity of [place] [facility] 4.2.7.2.686 [place] as [phone] [address] 2019-10-20 2019-10-21 Hospital Lamont Erazo [facility] 1.2.840.114 [id number] Univers 23:11:00 01:40:00 Encounter Jac Berrios 350.1.13.10 it[place] [phone] [address] 2019-10-20 2019-10-20 Telephone Nichole [facility] 1.2.840.114 [id number] Univers 00:00:00 00:00:00 Juana Yash 350.1.13.10 i ty [place] [phone] La dical nal 134 [facility] 2019-10-17 2019-10-17 Routine Nichole [facility] 1.2.203.146 [id number] Univers 11:05:53 11:20:53 Juana Berrios 350.1.13.10 ity of [place] [phone] La dical nal 134 [facility] 2019-10-17 2019-10-17 Outpatient R NICHOLE [facility] [id number] Univers 10:45:00 10:45:00 JUANA ity of [facility] 2019-10-09 2019-10-09 Routine [facility] 1.2.003.381 [id number] Univers 11:02:03 11:29:47 Jac Berrios 350.1.13.10 ity of [place] [phone] La dical nal [address] [place] [address] 2019-10-09 2019-10-09 Outpatient R LAMONT ERAZO [facility] [id number] Univers 11:00:00 11:00:00 ity of [facility] 2019-10-02 2019-10-02 Proj Engineer Luigi Brennan [facility] Main [facility] 1.2.8 40.114 [id number] Univers 17:13:05 17:28:05 Visit Lamont Erazo 350.1.13.10 it[place] of [place] [phone] La dical nal 353 [facility] 2019-10-02 2019-10-02 Routine Lamont Erazo [facility] 1.2.034.592 [id number] Univers 16:19:14 17:01:17 Cam Jaffrey 350.1.13.10 ity of [place] [phone] [address] 2019-10-02 2019-10-02 Outpatient R LAMONT ERAZO [facility] [id number] Univers 16:15:00 16:15:00 ity of [facility] 2019-10-02 2019-10-02 Orders Doctor MARI 1.2.840.114 [id number] Univers 00:00:00 00:00:00 Only Unassigned, KIM 350.1.13.10 ity of [place] [facility] 4.2.7.2.686 [place] as [phone] [facility] [address] 2019-10-01 2019-10-01 [facility] 1.2.038.768 [id number] Univers 00:00:00 00:00:00 Management Cam Jaffrey 350.1.13.10 it[place] [phone] [address] 2019-09-23 2019-09-23 Telephone Lamont Erazo [facility] 1.2.840.114 [id number] Univers 00:00:00 00:00:00 Cam Jaffrey 350.1.13.10 i ty [place] [phone] [address] 2019-09-19 2019-09-19 [facility] Lamont Erazo [facility] 1.2.840.114 [id number] Univers 15:13:00 16:40:00 Encounter Cam Jaffrey 350.1.13.10 it[place] of [place] [phone] [facility] [address] 2019-09-18 2019-09-18 Office Nichole [facility] 1.2.256.768 [id number] Univers 16:14:44 16:36:56 Visit Juana Berrios 350.1.13.10 i ty [place] [phone] [facility] 134 [facility] 2019-09-18 2019-09-18 Outpatient R NICHOLE [facility] [id number] Univers 16:15:00 16:15:00 JUANA iterinn [facility] 2019-09-04 2019-09-04 Outpatient R NICHOLE [facility] [id number] Univers 14:00:00 14:00:00 JUANA du [facility] 2019-09-04 2019-09-04 [facility]medici [facility] 1.2.840.114 [id number] Univers 08:17:03 08:32:03 ne Visit Juana Berrios 350.1.13.10 it[place] [phone] [facility] 134 [facility] 2019-09-01 2019-09-01 Hospital Lamont Erazo [facility] 1.2.840.114 [id number] Univers 14:06:00 15:45:00 Encounter Jac Berrios 350.1.13.10 it[place] of [place] [phone] [facility] [address] 2019-09-01 2019-09-01 Telephone PcpMARI 1.2.469.348 [id number] Univers 00:00:00 00:00:00 Patient KIM 350.1.13.10 it y of Does [facility] [place] [phone] [facility] [address] 2019-08-21 2019-08-21 Proj Engineer 2, Adc Lab [facility] 1.2.840.114 [id number] Univers 09:30:21 09:45:21 Visit Lamont Erazo Jac Berrios 350.1.13.10 it[place] of [place] [phone] [facility] 353 [facility] 2019-08-21 2019-08-21 Routine Lamont Erazo [facility] 1.2.612.062 [id number] Univers 08:52:22 09:26:03 Jac Berrios 350.1.13.10 ity of [place] [phone] [address] 2019-08-21 2019-08-21 Outpatient R LAMONT ERAZO [facility] [id number] Univers 08:45:00 08:45:00 ity of [facility] 2019-08-21 2019-08-21 Orders Doctor MARI 1.2.840.114 [id number] Univers 00:00:00 00:00:00 Only Unassigned, KIM 350.1.13.10 ity of [place] [facility] 4.2.7.2.686 [place] as [phone] [facility] [address] 2019-08-12 2019-08-12 Telephone Lamont Erazo [facility] 1.2.840.114 [id number] Univers 00:00:00 00:00:00 Cam Jaffrey 350.1.13.10 i ty [place] [phone] [address] 2019-08-09 2019-08-09 Hospital [facility] 1.2.840.114 [id number] Univers 18:23:00 19:45:00 Encounter Cam Jaffrey 350.1.13.10 it[place] of [place] [phone] [facility] [address] 2019-07-24 2019-07-24 Outpatient R LAMONT ERAZO [facility] [id number] Univers 08:45:00 08:45:00 ity of [facility] 2019-07-24 2019-07-24 Telemedici Juana Varela [facility] 1.2.840 .114 [id number] Univers 07:57:29 08:12:29 ne Visit Lamont Erazo Jac Jaffrey 350.1.13.10 ity of [place] [phone] [address] 2019-07-03 2019-07-03 Telephone Lamont Erazo [facility] 1.2.840.114 [id number] Univers 00:00:00 00:00:00 Cam Jaffrey 350.1.13.10 i ty of [place] [phone] [address] 2019-06-26 2019-06-26 Routine Nichole [facility] 1.2.102.227 [id number] Univers 08:52:21 09:35:10 Juana Berrios 350.1.13.10 ity of [place] [phone] [address] 2019-06-26 2019-06-26 Outpatient R NICHOLE [facility] [id number] Univers 08:45:00 08:45:00 JUANA ity [facility] 2019-06-26 2019-06-26 Letter Nichole [facility] 1.2.639.336 [id number] Univers 00:00:00 00:00:00 (Out) Juana Berrios 350.1.13.10 i ty of [place] [phone] [address] 2019-06-17 2019-06-17 Proj [facility] 1.[facility] .840.114 [id number] Univers 10:42:55 11:54:58 Visit Rupert Tovar [place] 350.1.13.10 ity of [facility] 4.2.7.2.686 [place] as MATERNAL [phone] Med ical & CHILD [address] [place] [address] 2019-06-03 2019-06-03 Telephone Lamont Erazo [facility] 1.2.840.114 [id number] Univers 00:00:00 00:00:00 Jac Berrios 350.1.13.10 i ty of [place] [phone] [address] 2019-06-02 2019-06-02 Telephone Lamont Erazo [facility] 1.2.840.114 [id number] Univers 00:00:00 00:00:00 Jac Berrios 350.1.13.10 i ty of [place] [phone] [address] 2019-06-01 2019-06-01 Case Nichole, [facility] 1.2.706.429 [id number] Univers 00:00:00 00:00:00 Management Juana Berrios 350.1.13.10 ity of [place] [phone] [facility] 134 [facility] 2019-05-29 2019-05-29 Proj Engineer Luigi Brennan Lab Main [facility] 1.2.8 40.114 [id number] Univers 12:52:11 13:53:00 Visit Lamont Erazo 350.1.13.10 it[place] of [place] [phone] [facility] 353 [facility] 2019-05-29 2019-05-29 Orders Doctor MARI 1.2.840.114 [id number] Univers 00:00:00 00:00:00 Only Unassigned, KIM 350.1.13.10 ity of [place] [facility] 4.2.7.2.686 [place] as [phone] [address] 2019-05-29 2019-05-29 Letter Valarie Erazoen [facility] 1.2.258.855 [id number] Univers 00:00:00 00:00:00 (Out) Jac Berrios 350.1.13.10 i ty of [place] [phone] [facility] 134 [facility] Results Test Description Test Time Test Comments Results Result Comments Source POCT TEST 2023-01-08 19:50:00 Test Item Value Reference Range Interpretation Comme nts POCT PREG (test code = 1605) Negative On board controls acceptable with C Line (test code = 3574) Yes POCT PREG LOT # (test code = 3575) POCT PREG TEST DATE (test code = 3576) [id number] 19:50:00 Test Item Value Reference Range Interpretation Comments POCT PREG (test code = 1605) Negative On board controls acceptable with C Yes Line (test code = 3574) POCT PREG LOT # (test code = 3575) POCT PREG TEST DATE (test code = 3576) [facility] [id number] 13:52:00 Test Item Value Reference Range Interpretation Comments POCT PREG (test code = 1605) Negative On board controls acceptable with C Yes Line (test code = 3574) POCT PREG LOT # (test code = 3575) POCT PREG TEST DATE (test code = 3576) [facility] [id number] 13:52:00 Test Item Value Reference Range Interpretation Comments POCT PREG (test code = 1605) Negative On board controls acceptable with C Yes Line (test code = 3574) POCT PREG LOT # (test code = 3575) POCT PREG TEST DATE (test code = 3576) [facility]
[2023-03-08 17:00] LABS: Specific Gravity > 1.030 (1.005-1.030)
[2023-03-08 17:04] LABS: Specific Gravity > 1.030 (1.005-1.030); Urine Bacteria None Seen /HPF (<20); Urine Bilirubin NEGATIVE (Negative); Urine Blood 3+ (OVER) (Negative); Urine Clarity Turbid (Clear); Urine Color Yellow (Yellow); Urine Glucose NEGATIVE (Negative); Urine Mucus Slight /HPF (None Seen); Urine Protein 1+ (Negative); Urine RBC >50 /HPF (None Seen); Urine Urobilinogen 1+ (Normal)
[2023-03-08 17:06] LABS: Absolute Lymphocytes (CBC) 1.7 K/uL (0.7-4.9); Hematocrit 36.9 % (36.0-45.0); Lymphocytes % 36.7 % (15.3-44.8); MCV 84.6 fL (80-100); MPV 9.3 fL (7.6-11.3); Platelets 324 thou/uL (152-406); RBC Red Blood Cell Count 4.36 M/uL (3.86-4.86)
--- NOTE | 2023-03-08 17:20 | RAD REPORT ---
EXAM DESCRIPTION: US - Pelvis Complete - 03/08/2023 4:39 pm CLINICAL HISTORY: VAGINAL BLEEDING COMPARISON: No comparisons TECHNIQUE: Sonographic grayscale and color flow images of the pelvis were obtained. FINDINGS: The uterus is normal in size, with the retroverted and retroflexed appearance. No focal my ometrial abnormality or abnormal echotexture. The uterus measures 8.2 cm in length. The endometrial stripe measures 7 mm, normal. Trace fluid along the endometrial canal. Both ovaries are normal in size, shape and echotexture. The right ovary measures 3.2 x 1.4 x 1.6 cm. The left ovary measures 1.9 x 1.2 x 2.2 cm. No ovarian or parovarian lesions. No adnexal masses. Normal Doppler blood flow was demonstrated to both ovaries. No significant pelvic ascites. IMPRESSION: Retroverted retroflexed uterus. Normal pelvic ultrasound otherwise.
--- NOTE | 2023-03-08 17:51 | ER ---
Nurse's Notes [facility] Name: Femi Sal Age: 22 yrs Sex: Female : 2000 Arrival Date: 03/08/2023 Time: 14:43 Bed 24 Private MD: Diagnosis: Abnormal uterine and vaginal bleeding, unspecified;Anemia, unspecified Presentation: 03/08 14:49 Coronavirus screen: Vaccine status: Patient reports being unvaccinated. Ebola Screen: kd3 No symptoms or risks identified at this time. Initial Sepsis Screen: Does the patient meet any 2 criteria? No. Patient's initial sepsis screen is negative. Does the patient have a suspected source of infection? No. Patient's initial sepsis screen is negative. Risk Assessment: Do you want to hurt yourself or someone else? Patient reports no desire to harm self or others. Onset of symptoms was March 08, 2023. 14:49 Method Of Arrival: Ambulatory kd3 14:50 Chief complaint: Patient states: I have been bleeding heavy for two months. I have some kd3 sharp pains in my lower abdomen. I have no other symptoms. 14:50 Acuity: MAYRA 3 kd3 Triage Assessment: 14:49 General: Appears in no apparent distress. Behavior is calm, cooperative. Pain: kd3 Complains of pain in right lower quadrant and left lower quadrant. GI: Abdomen is non-distended. Historical: - Allergies: 14:49 No Known Allergies; kd3 - Immunization history:: Adult Immunizations up to date. - Social history:: Smoking status: Patient denies any tobacco usage or history of. Vital Signs: 14:48 BP 116 / 67; Pulse 80; Resp 17; Temp 98.8(TE); Pulse Ox 100% ; Weight 67.59 kg; Height kd3 5 ft. 9 in. ; 14:48 Body Mass Index 22.00 (67.59 kg, 175.26 cm) kd3 ED Course: 14:44 Patient arrived in ED. rg4 14:49 Arm band placed on right wrist. kd3 14:51 Triage completed. kd3 15:06 Eduardo Natarajan DO is Attending Physician. ms3 16:41 US Pelvis Complete In Process Unspecified. EDMS 17:51 Shikha Bui MD is Referral Physician. ms3 Administered Medications: No medications were administered Outcome: 17:51 Discharge ordered by MD. quiles3 18:11 Patient left the ED. iw Signatures: Dispatcher [employer] EDMS Shereen Naidu, RN RN Mily Oseguera rg4 Eduardo Natarajan DO DO ms3 Latrice Walker, RN RN kd3
--- NOTE | 2023-03-08 17:51 | EDPHYS ---
Physician Documentation [facility] Name: Femi Sal Age: 22 yrs Sex: Female : 2000 Arrival Date: 03/08/2023 Time: 14:43 Bed 24 Private MD: ED Physician Eduardo Natarajan HPI: 03/08 15:29 This 22 yrs old Black Female presents to ER via Ambulatory with complaints of Abdominal ms3 Pain, Vaginal Bleeding. 15:29 22-year-old female with no past medical history presents to the emergency department ms3 for vaginal bleeding that has been ongoing for 2 months. Patient states she has not seen a [place] department supervisor. Patient states she is also having right-sided lower sharp britany pain. Patient states she is going through approximately 1 pad per hour. Patient endorses fatigue. Historical: - Allergies: 14:49 No Known Allergies; kd3 - Immunization history:: Adult Immunizations up to date. - Social history:: Smoking status: Patient denies any tobacco usage or history of. ROS: 15:29 Constitutional: Negative for fever, and chills. Neck: Negative for injury, pain, and ms3 swelling, Cardiovascular: Negative for chest pain, and palpitations. Respiratory: Negative for shortness of breath, cough, wheezing, and pleuritic chest pain, Abdomen/GI: Negative for abdominal pain, nausea, vomiting, diarrhea, and constipation, 15:29 : Positive for vaginal bleeding, 15:29 All other systems are negative, Exam: 15:29 Constitutional: This is a well developed, well nourished patient who is awake, alert, ms3 and in no acute distress. Head/Face: Normocephalic, atraumatic. Neck: Trachea midline, no cervical lymphadenopathy. Supple, full range of motion without nuchal rigidity, or vertebral point tenderness. No Meningismus. Chest/axilla: Normal chest wall appearance and motion. Nontender with no deformity. Cardiovascular: Regular rate and rhythm with a normal S1 and S2. No gallops, murmurs, or rubs. Normal PMI, no JVD. No pulse deficits. Respiratory: Lungs have equal breath sounds bilaterally, clear to auscultation and percussion. No rales, rhonchi or wheezes noted. No increased work of breathing, no retractions or nasal flaring. Abdomen/GI: Soft, non-tender, with normal bowel sounds. No distension or tympany. No guarding or rebound. No evidence of tenderness throughout. MS/ Extremity: Pulses equal, no cyanosis. Neurovascular intact. Full, normal range of motion. Vital Signs: 14:48 BP 116 / 67; Pulse 80; Resp 17; Temp 98.8(TE); Pulse Ox 100% ; Weight 67.59 kg; Height kd3 5 ft. 9 in. ; 14:48 Body Mass Index 22.00 (67.59 kg, 175.26 cm) kd3 MDM: 15:29 Differential diagnosis: malignancy, menometrorrhagia, menorrhea, uterine fibroids. ms3 15:34 Patient medically screened. ms3 18:03 Data reviewed: vital signs, lab test result(s), radiologic studies, and as a result, I ms3 will discharge patient. Counseling: I had a detailed discussion with the patient and/or guardian regarding the historical points, exam findings, and any diagnostic results supporting the discharge/admit diagnosis, lab results, radiology results, the need for outpatient follow up, to return to the emergency department if symptoms worsen or persist or if there are any questions or concerns that arise at home. 11 15:29 Order name: Test, Urine; Complete Time: 17:19 ms3 11 15:29 Order name: Urinalysis W/Microscopic; Complete Time: 17:19 ms3 11 15:29 Order name: CBC with Diff; Complete Time: 17:19 ms3 11 15:29 Order name: US Pelvis Complete; Complete Time: 17:46 ms3 Administered Medications: No medications were administered Disposition Summary: 03/08/23 17:51 Discharge Ordered Notes: Location: Home ms3 Condition: Stable ms3 Diagnosis - Abnormal uterine and vaginal bleeding, unspecified ms3 - Anemia, unspecified ms3 Followup: ms3 - With: Shikha Bui MD - When: 2 - 3 days - Reason: Recheck today's complaints Discharge Instructions: - Discharge Summary Sheet ms3 - Abnormal Uterine Bleeding ms3 - Anemia ms3 Forms: - Medication Reconciliation Form ms3 - Thank You Letter ms3 - Antibiotic Education ms3 - Prescription Opioid Use ms3 - Patient Portal Instructions ms3 - Leadership Thank You Letter ms3 Signatures: Dispatcher [employer] Eduardo Napier DO DO ms3 Latrice Walker, RN RN kd3
[2023-03-08 18:16] VITALS: BP 116/67; TEMP 98.8; O2SAT 100
== END 2023-03-08 18:11 | disposition home or self-care (01) ==
LOC: ER 14:43
DX: D64.9 Anemia, unspecified (principal)
CPT/HCPCS: 36415; 76856; 81001; 81025; 85025; 99281